=== PATIENT | male | born 1945 | race Hispanic/Latino ===

== ENCOUNTER 2018-08-09 18:26 | Inpatient (IN) | payer OTHER ==
--- NOTE | 2018-08-09 19:51 | ED PDOC ---
Lower Extremity Pain/Injury Time Seen by Provider: 08/09/18 19:11 Chief Complaint (Nursing): Lower Extremity Problem/Injury Chief Complaint (Provider): LLE Problem History Per: Patient History/Exam Limitations: no limitations Onset/Duration Of Symptoms: Days (x3) Current Symptoms Are (Timing): Still Present Additional Complaint(s): 72 year old male presents to the ED for evaluation of redness, swelling, pain, and warmth to his LLE for the past three days. He states the redness has spread up to this thigh from his calf. Denies chest pain, shortness of breath, fever, and chills. Of note, patient reports traveling from [place] sixteen days ago via plane. PMD: out of the area Past Medical History Reviewed: Historical Data, Nursing Documentation, Vital Signs Vital Signs: Last Vital Signs Temp 98.2 F 08/09/18 18:46 Pulse 117 H 08/09/18 18:46 Resp 18 08/09/18 18:46 BP 161/83 H 08/09/18 18:46 Pulse Ox 98 08/09/18 18:46 - Medical History PMH: No Chronic Diseases - Surgical History Surgical History: No Surg Hx - Family History Family History: States: Unknown Family Hx - Social History Current smoker - smoking cessation education provided: No Alcohol: None Drugs: Denies - Allergies Allergies/Adverse Reactions: Allergies Allergy/AdvReac Type Severity Reaction Status Date / Time No Known Allergies Allergy Verified 08/09/18 18:46 Wells Criteria for PE - Wells Criteria for Pulmonary Embolism Clinical Signs and Symptoms of DVT: No P.E is #1 Diagnosis, or Equally Likely: No Heart Rate >100: Yes Immobilization at least 3 days;Surgery previous 4 weeks: No Previous, objectively diagnosed PE or DVT: No Hemoptysis: No Malignancy w/treatment within 6 months, or palliative: No Total Score: 1.5 Review of Systems ROS Statement: Except As Marked, All Systems Reviewed And Found Negative Constitutional: Negative for: Fever, Chills Cardiovascular: Negative for: Chest Pain Respiratory: Negative for: Shortness of Breath Musculoskeletal: Positive for: Other (redness, swelling, pain, and warmth to LLE) Physical Exam - Reviewed Nursing Documentation Reviewed: Yes Vital Signs Reviewed: Yes - Physical Exam Appears: Positive for: No Acute Distress Head Exam: Positive for: ATRAUMATIC, NORMOCEPHALIC Skin: Positive for: Normal Color Eye Exam: Positive for: Normal appearance Neck: Positive for: Normal, Painless ROM, Supple Cardiovascular/Chest: Positive for: Tachycardia Respiratory: Positive for: Normal Breath Sounds. Negative for: Respiratory Distress Gastrointestinal/Abdominal: Positive for: Normal Exam, Soft. Negative for: Tenderness Extremity: Positive for: Other (LLE erythema, swelling, warmth, and tenderness from ankle extending to knee with medial aspect of left thigh also erythematous) Neurologic/Psych: Positive for: Alert, Oriented (x3) - Laboratory Results Result Diagrams: 08/09/18 20:26 08/09/18 20:26 - ECG O2 Sat by Pulse Oximetry: 98 (RA) Pulse Ox Interpretation: Normal Medical Decision Making Medical Decision Making: Time: 1916 Initial Impression: cellulitis v DVT Initial Plan: --VBG --EKG --CMP --U-dip --CBC with differential --Chest x-ray --Blood culture --Most likely cellulitis, not DVT, however will obtain venous duplex LLE to r/o DVT. --Will start IV vancomycin as patient is tachy and most likely will be septic. Scribe Attestation: Documented by Monserrat Lepe, acting as a scribe for Blaze Villatoro MD. Provider Scribe Attestation: All medical record entries made by the Scribe were at my direction and personally dictated by me. I have reviewed the chart and agree that the record accurately reflects my personal performance of the history, physical exam, medical decision making, and the department course for this patient. I have also personally directed, reviewed, and agree with the discharge instructions and disposition. Disposition - Clinical Impression Clinical Impression: Cellulitis, Sepsis - Patient ED Disposition Is Patient to be Admitted: Yes - Disposition Disposition Time: 20:53 Condition: FAIR Forms: [employer] (Slovenian) - Pt Status Changed To: Hospital Disposition Of: Inpatient - Admit Certification Admit to Inpatient:: After my assessment, the patient will require hospitalization for at least two midnights. This is because of the severity of symptoms shown, intensity of services needed, and/or the medical risk in this patient being treated as an outpatient. - POA Present On Arrival: None
[2018-08-09] MEDS ORDERED: Vancomycin 1 g Inj ONE (20:12)
[2018-08-09 20:32] LABS: BASO % 0.1 % (0.0-2.0); HEMOGLOBIN 12.9 g/dL (12.0-18.0); LYMPH # 0.7 K/uL (1.0-4.3); LYMPH % 4.9 % (20.0-40.0); MEAN CELL VOLUME 95.4 fl (80.0-94.0); MEAN CORPUSCULAR HEMOGLOBIN 32.3 pg (27.0-31.0); MEAN CORPUSCULAR HGB CONC 33.8 g/dL (33.0-37.0); MEAN PLATELET VOLUME 8.8 fl (7.2-11.7); MONO # 0.4 K/uL (0.0-0.8); MONO % 2.8 % (0.0-10.0); NEUT # 13.4 K/uL (1.8-7.0); NEUT % 92.2 % (50.0-75.0); PLATELET COUNT 186 K/uL (130-400); RBC 4.01 Mil/uL (4.40-5.90); RED CELL DISTRIBUTION WIDTH 14.5 % (11.5-14.5); WHITE BLOOD COUNT 14.5 K/uL (4.8-10.8)
[2018-08-09 20:42] LABS: ALB/GLOB RATIO 1.1 (1.0-2.1); ALBUMIN 3.8 g/dL (3.5-5.0); ALT/SGPT 54 U/L (21-72); AST/SGOT 55 U/L (17-59); BLOOD UREA NITROGEN 18 mg/dl (9-20); CALCIUM 8.7 mg/dL (8.4-10.2); GFR NON-AFRICAN AMERICAN > 60
[2018-08-09] MEDS ORDERED: Potassium Chloride 20 mEq ER Tab PO ONE ×2 (20:50→22:37)
[2018-08-09] MEDS ORDERED: Piperacillin/Tazobact 3.375 GM in Sodium Chloride 0.9% 100 ML IVPB STA (20:51)
[2018-08-09] MEDS ORDERED: Sodium Chloride 0.9% 1,000 ML IV STA (20:52)
[2018-08-09] MEDS ORDERED: Oxycodone/Acetaminophen 5/325 mg Tab PO PRN (20:57)
--- NOTE | 2018-08-09 21:07 | CP.PCM.HP ---
<Lisa Fabian - Last Filed: 08/09/18 21:57> History of Present Illness - History of Present Illness History of Present Illness: 72 year old male w/o relevant PMH presents to the ED c/o redness, swelling, pain, and warmth to his LLE for the past three days. He states the redness has spread up to this thigh from his calf. Associated fever and chills, last temperature checked this afternoon 102. F. He is here from [place], he is here for vacations. No other complaints. He denies nausea, vomiting, chest pain, shortness of breath, no urinary sx. Of note, patient reports traveling from [place] sixteen days ago via plane. PMD: from [place], here for vacations PMH: denies PSH: Squamous cell ca (forehead), appendectomy FMH: denies Meds: none NKDA SH: denies tobacco, ilicit drugs, positive etoh 2 drinks nightly. Present on Admission - Present on Admission Any Indicators Present on Admission: No Review of Systems - Review of Systems All systems: reviewed and no additional remarkable complaints except (HPI) Past Patient History - Past Social History Alcohol: None Drugs: Denies - HEMATOLOGICAL/ONCOLOGICAL Hx Cancer: Yes - PSYCHIATRIC Hx Substance Use: No - SURGICAL HISTORY Hx Appendectomy: Yes Other/Comment: tumor from forehead removed - ANESTHESIA Hx Anesthesia: Yes Meds Allergies/Adverse Reactions: Allergies Allergy/AdvReac Type Severity Reaction Status Date / Time No Known Allergies Allergy Verified 08/09/18 18:46 Physical Exam - Constitutional Appears: No Acute Distress - Head Exam Head Exam: NORMAL INSPECTION - Eye Exam Eye Exam: EOMI, PERRL - Respiratory Exam Respiratory Exam: Clear to Auscultation Bilateral, NORMAL BREATHING PATTERN - Cardiovascular Exam Cardiovascular Exam: REGULAR RHYTHM, +S1, +S2. absent: Tachycardia - GI/Abdominal Exam GI & Abdominal Exam: Normal Bowel Sounds, Soft. absent: Distended, Tenderness - Extremities Exam Additional comments: LLE erythema, swelling, warmth, and tenderness from ankle extending to knee with medial aspect of left thigh also erythematous, DP/PT 2+ b/l - Neurological Exam Neurological exam: Alert, CN II-XII Intact, Oriented x3 - Skin Skin Exam: Dry Results - Vital Signs Recent Vital Signs: Last Vital Signs Temp 98.2 F 08/09/18 18:46 Pulse 117 H 08/09/18 18:46 Resp 18 08/09/18 18:46 BP 161/83 H 08/09/18 18:46 Pulse Ox 98 08/09/18 20:53 - Labs Result Diagrams: 08/09/18 20:26 08/09/18 20:26 Labs: Laboratory Results - last 24 hr 08/09/18 08/09/18 20:26 20:26 WBC 14.5 H RBC 4.01 L Hgb 12.9 Hct 38.3 MCV 95.4 H MCH 32.3 H MCHC 33.8 RDW 14.5 Plt Count 186 MPV 8.8 Neut % (Auto) 92.2 H Lymph % (Auto) 4.9 L [place] % (Auto) 2.8 Eos % (Auto) 0.0 Baso % (Auto) 0.1 Neut # (Auto) 13.4 H Lymph # (Auto) 0.7 L [place] # (Auto) 0.4 Eos # (Auto) 0.0 Baso # (Auto) 0.0 Sodium 130 L Potassium 3.3 L Chloride 94 L Carbon Dioxide 23 Anion Gap 16 BUN 18 Creatinine 0.9 Est GFR ( Amer) > 60 Est GFR (Non-Af Amer) > 60 Random Glucose 115 H Calcium 8.7 Total Bilirubin 1.6 H AST 55 ALT 54 Alkaline Phosphatase 146 H Total Protein 7.4 Albumin 3.8 Globulin 3.6 Albumin/Globulin Ratio 1.1 Assessment & Plan - Assessment and Plan (Free Text) Assessment: 72 yo male patient admitted with LLE cellulitis/sepsis. Plan: LLE cellulitis/ r/o sepsis - fever, tachy, elevated WBC - EKG sinus tachy - LE doppler: pending official report - vanco in ED - IV fluids - start vanco and zocyn IV - pain management - labs in am - f/u blood and urine CX Hypokalemia/Hyponatremia - K 3.3, Na 130 - repleted - IV fluids - f/u cmp in am DVT prophylaxis: - lovenox SC daily Case discussed with Dr Hernandez. <Bonnie Hernandez - Last Filed: 08/11/18 10:15> Results - Vital Signs Recent Vital Signs: Last Vital Signs Temp 98.0 F 08/11/18 08:00 Pulse 78 12/26/18 08:00 Resp 20 08/11/18 08:00 BP 96/56 L 08/11/18 08:00 Pulse Ox 97 08/11/18 08:00 - Labs Result Diagrams: 08/11/18 07:46 08/11/18 07:46 Labs: Laboratory Results - last 24 hr 08/11/18 08/11/18 08/11/18 07:46 07:46 07:46 WBC 15.4 H RBC 3.26 L Hgb 10.6 L Hct 31.7 L MCV 97.3 H D MCH 32.5 H MCHC 33.4 RDW 14.2 Plt Count 197 MPV 8.7 Neut % (Auto) 88.4 H Lymph % (Auto) 7.2 L [place] % (Auto) 4.2 Eos % (Auto) 0.1 Baso % (Auto) 0.1 Neut # (Auto) 13.6 H Lymph # (Auto) 1.1 [place] # (Auto) 0.6 Eos # (Auto) 0.0 Baso # (Auto) 0.0 Sodium 130 L Potassium 3.2 L Chloride 100 Carbon Dioxide 21 L Anion Gap 12 BUN 18 Creatinine 1.0 Est GFR ( Amer) > 60 Est GFR (Non-Af Amer) > 60 Random Glucose 97 Calcium 7.5 L Phosphorus Magnesium Vancomycin Trough 7.1 08/11/18 08:54 WBC RBC Hgb Hct MCV MCH MCHC RDW Plt Count MPV Neut % (Auto) Lymph % (Auto) [place] % (Auto) Eos % (Auto) Baso % (Auto) Neut # (Auto) Lymph # (Auto) [place] # (Auto) Eos # (Auto) Baso # (Auto) Sodium Potassium Chloride Carbon Dioxide Anion Gap BUN Creatinine Est GFR ( Amer) Est GFR (Non-Af Amer) Random Glucose Calcium Phosphorus 2.9 Magnesium 2.1 Vancomycin Trough Attending/Attestation - Attestation I have personally seen and examined this patient.: Yes I have fully participated in the care of the patient.: Yes I have reviewed all pertinent clinical information: Yes Notes (Text): 08/11/18 10:14 agree with findings and plan as above. admit for cellulitis, IV abx, pain control.
[2018-08-09 21:27] LABS: LYMPHOCYTE 6 % (20-50); MONOCYTE 1 % (0-10); NEUTROPHIL 93 % (42-75); PLATELET ESTIMATE NORMAL (NORMAL); TOTAL CELLS COUNTED 100
[2018-08-09 21:28] LABS: OVALOCYTES SLIGHT; SPHEROCYTES SLIGHT
[2018-08-09 22:27] LABS: VENOUS BLOOD GAS PCO2 31 mmHg (40-60); VENOUS BLOOD GAS PO2 23 mm/Hg (30-55); VENOUS BLOOD PH 7.49 (7.32-7.43)
[2018-08-09] MEDS ORDERED: Piperacillin/Tazobact 3.375 gm Inj IVPB ONE (22:37)
[2018-08-09] MEDS: Piperacillin/Tazobact 3.375 GM in Sodium Chloride 0.9% 100 ML IVPB SCH (23:49)
[2018-08-10] MEDS: Piperacillin/Tazobact 3.375 GM in Sodium Chloride 0.9% 100 ML IVPB SCH ×4 (03:51→21:58)
[2018-08-10 05:26] LABS: BASO % 0.1 % (0.0-2.0); LYMPH % 6.7 % (20.0-40.0); MEAN CORPUSCULAR HEMOGLOBIN 32.3 pg (27.0-31.0); MEAN PLATELET VOLUME 9.4 fl (7.2-11.7); MONO # 0.4 K/uL (0.0-0.8); MONO % 3.1 % (0.0-10.0); NEUT # 13.1 K/uL (1.8-7.0); NEUT % 90.1 % (50.0-75.0); PLATELET COUNT 166 K/uL (130-400); WHITE BLOOD COUNT 14.5 K/uL (4.8-10.8)
[2018-08-10 06:08] LABS: ALB/GLOB RATIO 0.9 (1.0-2.1); ALBUMIN 2.9 g/dL (3.5-5.0); ALT/SGPT 71 U/L (21-72); AST/SGOT 77 U/L (17-59); BLOOD UREA NITROGEN 17 mg/dl (9-20); CALCIUM 7.8 mg/dL (8.4-10.2); GFR NON-AFRICAN AMERICAN > 60
[2018-08-10 08:53] LABS: ANISOCYTOSIS SLIGHT; BANDS 6 % (0-2); LYMPHOCYTE 5 % (20-50); MONOCYTE 1 % (0-10); NEUTROPHIL 88 % (42-75); PLATELET ESTIMATE NORMAL (NORMAL); POIKILOCYTOSIS SLIGHT; TOTAL CELLS COUNTED 100; TOXIC GRANULATION PRESENT
[2018-08-10] MEDS: Enoxaparin 40 mg Syringe SC SCH (09:16)
[2018-08-10] MEDS: Sodium Chloride 0.9% 1,000 ML IV SCH ×2 (09:27→19:25)
[2018-08-10] MEDS ORDERED: Sodium Chloride 0.9% 0 ML IV ONE (10:47)
[2018-08-10] MEDS ORDERED: Iodixanol 320 MG/ML 100 ML BOTTLE IV ONE (10:47)
--- NOTE | 2018-08-10 11:02 | CP.PCM.PN ---
Subjective - Date & Time of Evaluation Date of Evaluation: 08/10/18 Time of Evaluation: 09:15 - Subjective Subjective: 72 y/o M, traveler form [place], with No significant PMHx admitted for LLE cellulitis. 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 Patient seen and evaluated at bedside in AM. No acute events overnight. Afebrile, VSS, NAD. Patient with LLE erythema, swelling and pain mildly improved compare to yesterday. Denies fever, chills, chest pain, shortness of breath, abdominal pain, N/V/D. Tolerating diet well PO. Objective - Vital Signs/Intake and Output Vital Signs (last 24 hours): Temp Pulse Resp BP Pulse Ox 97.7 F 84 20 98/64 L 99 08/10/18 08:28 08/10/18 08:28 08/10/18 08:28 08/10/18 08:28 08/10/18 08:28 - Medications Medications: Current Medications Acetaminophen (Tylenol 325mg Tab) 650 mg PO Q6 PRN PRN Reason: Fever >100.4 F Last Admin: 08/09/18 23:25 Dose: 650 mg Acetaminophen (Tylenol 325mg Tab) 650 mg PO Q6 PRN PRN Reason: Other Enoxaparin Sodium (Lovenox) 40 mg SC DAILY YUMIKO; Protocol Last Admin: 08/10/18 09:16 Dose: 40 mg Vancomycin HCl 1 gm/ Sodium (Chloride) 250 mls @ 166.667 mls/hr IVPB Q12 YUMIKO; Protocol Last Admin: 08/10/18 09:26 Dose: 166.667 mls/hr Piperacillin Sod/Tazobactam (Sod 3.375 gm/ Sodium Chloride) 100 mls @ 100 mls/hr IVPB Q6 YUMIKO; Protocol Last Admin: 08/10/18 09:18 Dose: 100 mls/hr Sodium Chloride (Sodium Chloride 0.9%) 1,000 mls @ 100 mls/hr IV .Q10H YUMIKO Stop: 08/11/18 08:32 Last Admin: 08/10/18 09:27 Dose: 100 mls/hr Oxycodone/Acetaminophen (Percocet 5/325 Mg Tab) 1 tab PO Q4 PRN PRN Reason: Pain, severe (8-10) Stop: 08/12/18 20:58 - Labs Labs: 12/25/18 04:30 08/10/18 04:30 - Constitutional Appears: Non-toxic, No Acute Distress - Head Exam Head Exam: ATRAUMATIC, NORMOCEPHALIC - Eye Exam Eye Exam: EOMI, Normal appearance - ENT Exam ENT Exam: Mucous Membranes Moist - Neck Exam Neck Exam: Full ROM - Respiratory Exam Respiratory Exam: Clear to Ausculation Bilateral, NORMAL BREATHING PATTERN. ab sent: Rales, Rhonchi, Wheezes - Cardiovascular Exam Cardiovascular Exam: REGULAR RHYTHM, +S1, +S2. absent: Murmur - GI/Abdominal Exam GI & Abdominal Exam: Soft, Normal Bowel Sounds. absent: Distended, Tenderness - Extremities Exam Extremities Exam: Calf Tenderness, Pedal Edema, Tenderness Additional comments: LLE erythema, pitting LLE below knee on left, + Tenderness. - Neurological Exam Neurological Exam: Alert, Awake, Oriented x3 - Psychiatric Exam Psychiatric exam: Normal Affect, Normal Mood - Skin Skin Exam: Dry, Intact, Normal Color, Warm Assessment and Plan - Assessment and Plan (Free Text) Assessment: 72 yo male patient w/ no significant PMHx admitted with LLE cellulitis. Plan: LLE cellulitis, r/o sepsis/DVT - Afebrile, VSS - LE doppler: Negative for DVTs. - Started on Vancomycin 1g BID - Started on Zosyn 3.375 mg Q6 - Start NS @ 100 ml/hr - Tylenol and Percocet for pain management - F/U CBC, blood and vancomycin trough level. Leukocytosis - Likely secondary to cellulites - WBC 14.5 - Monitor CBC Hypokalemia/Hyponatremia - K 3.4, Na 129 - Continue NS @ 100 ml/hr - f/u CMP DVT prophylaxis: - lovenox SC daily Code status: Full code
[2018-08-10] MEDS ORDERED: Potassium Chloride 20 mEq ER Tab PO ONE (14:30)
--- NOTE | 2018-08-10 14:59 | RAD ---
Date of service: 08/09/2018 HISTORY: cough COMPARISON: No prior. FINDINGS: LUNGS: No active pulmonary disease, with azygous fissure identified at the medial right apex. PLEURA: No significant pleural effusion identified, no pneumothorax apparent. CARDIOVASCULAR: No aortic atherosclerotic calcification present. Normal cardiac size. No pulmonary vascular congestion. OSSEOUS STRUCTURES: No significant abnormalities. VISUALIZED UPPER ABDOMEN: Normal. OTHER FINDINGS: None. IMPRESSION: No acute cardiopulmonary disease appreciated.
--- NOTE | 2018-08-10 15:14 | US ---
Date of service: 08/09/2018 HISTORY: Redness and swelling. PRIORS: None. FINDINGS: 2-D, color and duplex Doppler analysis of the lower extremity venous circulation using routine protocol from the femoral veins through the popliteal veins. Venous compressibility: Normal. Flow and augmentation patterns: Normal. Visualized veins upper third of calf: Normal. [place] cyst: None. Incidentally noted small left inguinal lymph node, 6 mm short axis peer IMPRESSION: No sonographic or Doppler evidence for DVT in left lower extremity. The preliminary findings for this examination were reported by [facility] at 8:02 p.m. on 08/09/2018. There is concurrence of this report with the preliminary findings.
--- NOTE | 2018-08-10 20:08 | CARD ---
APPROVED REPORT Date of service: 08/09/2018 EKG Measurement Heart [id number] <Conclusion> Sinus tachycardia Possible Left atrial enlargement Incomplete RBBB Abnormal ECG
[2018-08-11] MEDS: Piperacillin/Tazobact 3.375 GM in Sodium Chloride 0.9% 100 ML IVPB SCH (04:04)
[2018-08-11] MEDS: Sodium Chloride 0.9% 1,000 ML IV SCH ×3 (04:06→21:00)
[2018-08-11 07:56] LABS: BASO % 0.1 % (0.0-2.0); EOS % 0.1 % (0.0-4.0); HEMOGLOBIN 10.6 g/dL (12.0-18.0); LYMPH # 1.1 K/uL (1.0-4.3); LYMPH % 7.2 % (20.0-40.0); MEAN CELL VOLUME 97.3 fl (80.0-94.0); MEAN CORPUSCULAR HEMOGLOBIN 32.5 pg (27.0-31.0); MEAN CORPUSCULAR HGB CONC 33.4 g/dL (33.0-37.0); MEAN PLATELET VOLUME 8.7 fl (7.2-11.7); MONO # 0.6 K/uL (0.0-0.8); MONO % 4.2 % (0.0-10.0); NEUT # 13.6 K/uL (1.8-7.0); NEUT % 88.4 % (50.0-75.0); RBC 3.26 Mil/uL (4.40-5.90); RED CELL DISTRIBUTION WIDTH 14.2 % (11.5-14.5); WHITE BLOOD COUNT 15.4 K/uL (4.8-10.8)
[2018-08-11 08:02] LABS: BLOOD UREA NITROGEN 18 mg/dl (9-20); CALCIUM 7.5 mg/dL (8.4-10.2); GFR NON-AFRICAN AMERICAN > 60
[2018-08-11] MEDS ORDERED: Potassium Chloride 20 mEq ER Tab PO ONE (08:17)
--- NOTE | 2018-08-11 09:55 | CP.PCM.CON ---
History of Present Illness - History of Present Illness History of Present Illness: Infectious Disease Consultation Note- HPI- Patient is a 72 year old male who is visiting his daughter from [place] and 2 days ago he woke up with redness and swelling and pain in his left leg. He denies any trauma or injury to the leg and denies ever having anything like this before. He states the redness has spread up to this thigh from his calf. Associated fever and chills. he denies any h/o diabetes or any pmh other than dry skin . he denies any ELLISON, denies any GI symptoms, denies any dysurea, denies any sob, denies any chest pain. He states since admission his skin has started to weep and he has some yellow fluid from the skin weeping. PMD: from [place], here for vacations PMH: denies PSH: Squamous cell ca (forehead), appendectomy FMH: denies Meds: none NKDA SH: denies tobacco, ilicit drugs, positive etoh 2 drinks nightly. Review of Systems - Review of Systems Review of Systems: ROS- left leg redness and swelling and pain and weeping for past 2 days, + fever, denies any trauma or injury to the region, denies any ELLISON , denies any cough or sob, denies any chest pain, denies any abd. pain, denies any dysurea, denies any diarrhea Past Patient History - Past Medical History & Family History Past Medical History?: No - Past Social History Smoking Status: Former Smoker Alcohol: < 2 Drinks/Day Drugs: Denies Home Situation {Lives}: With Family - CARDIAC Hx Cardiac Disorders: No - PULMONARY Hx Respiratory Disorders: No - NEUROLOGICAL Hx Neurological Disorder: No - HEENT Hx HEENT Problems: No - RENAL Hx Chronic Kidney Disease: No - ENDOCRINE/METABOLIC Hx Endocrine Disorders: No - HEMATOLOGICAL/ONCOLOGICAL Hx Blood Disorders: No - INTEGUMENTARY Hx Dermatological Problems: No - MUSCULOSKELETAL/RHEUMATOLOGICAL Hx Falls: No - GENITOURINARY/GYNECOLOGICAL Hx Genitourinary Disorders: No - PSYCHIATRIC Hx Substance Use: No - SURGICAL HISTORY Hx Surgeries: Yes Hx Appendectomy: Yes Other/Comment: tumor from forehead removed - ANESTHESIA Hx Anesthesia: Yes Hx Anesthesia Reactions: No Meds Allergies/Adverse Reactions: Allergies Allergy/AdvReac Type Severity Reaction Status Date / Time No Known Allergies Allergy Verified 08/09/18 18:46 - Medications Medications: Current Medications Enoxaparin Sodium (Lovenox) 40 mg SC DAILY YUMIKO; Protocol Last Admin: 08/10/18 09:16 Dose: 40 mg Vancomycin HCl 1 gm/ Sodium (Chloride) 250 mls @ 166.667 mls/hr IVPB Q12 [facility]; Protocol Last Admin: 08/10/18 20:17 Dose: 166.667 mls/hr Piperacillin Sod/Tazobactam (Sod 3.375 gm/ Sodium Chloride) 100 mls @ 100 mls/hr IVPB Q6 [facility]KO; Protocol Last Admin: 08/11/18 04:04 Dose: 100 mls/hr Ibuprofen (Motrin Tab) 600 mg PO Q6 PRN PRN Reason: Fever >100.4 F Ibuprofen (Motrin Tab) 600 mg PO Q6 PRN PRN Reason: Pain, Mild (1-3) Oxycodone/Acetaminophen (Percocet 5/325 Mg Tab) 1 tab PO Q4 PRN PRN Reason: Pain, severe (8-10) Stop: 08/12/18 20:58 Physical Exam - Constitutional Appears: No Acute Distress - Head Exam Head Exam: ATRAUMATIC - Eye Exam Eye Exam: EOMI, PERRL - ENT Exam ENT Exam: Normal Oropharynx - Neck Exam Neck exam: Positive for: Full Rom - Respiratory Exam Respiratory Exam: Clear to Auscultation Bilateral, NORMAL BREATHING PATTERN - Cardiovascular Exam Cardiovascular Exam: RRR, +S1, +S2 - GI/Abdominal Exam GI & Abdominal Exam: Normal Bowel Sounds, Soft Additional comments: NT, ND - Extremities Exam Additional comments: left leg from below knee all the way to foot with extensive edema, erythema, very taught skin, few opened blisters with weeping yellow fluid the erythema extends superiorly to medial inner thigh and inferior groin region no open wounds no ulcers - Neurological Exam Neurological exam: Alert, Oriented x3 Results - Vital Signs Recent Vital Signs: Last Vital Signs Temp 98.0 F 08/11/18 08:00 Pulse 78 08/11/18 08:00 Resp 20 08/11/18 08:00 BP 96/56 L 08/11/18 08:00 Pulse Ox 97 08/11/18 08:00 - Labs Result Diagrams: 08/11/18 07:46 08/11/18 07:46 Labs: Laboratory Results - last 24 hr 08/11/18 08/11/18 08/11/18 07:46 07:46 07:46 WBC 15.4 H RBC 3.26 L Hgb 10.6 L Hct 31.7 L MCV 97.3 H D MCH 32.5 H MCHC 33.4 RDW 14.2 Plt Count 197 MPV 8.7 Neut % (Auto) 88.4 H Lymph % (Auto) 7.2 L [place] % (Auto) 4.2 Eos % (Auto) 0.1 Baso % (Auto) 0.1 Neut # (Auto) 13.6 H Lymph # (Auto) 1.1 [place] # (Auto) 0.6 Eos # (Auto) 0.0 Baso # (Auto) 0.0 Sodium 130 L Potassium 3.2 L Chloride 100 Carbon Dioxide 21 L Anion Gap 12 BUN 18 Creatinine 1.0 Est GFR ( Amer) > 60 Est GFR (Non-Af Amer) > 60 Random Glucose 97 Calcium 7.5 L Phosphorus Magnesium Vancomycin Trough 7.1 08/11/18 08:54 WBC RBC Hgb Hct MCV MCH MCHC RDW Plt Count MPV Neut % (Auto) Lymph % (Auto) [place] % (Auto) Eos % (Auto) Baso % (Auto) Neut # (Auto) Lymph # (Auto) [place] # (Auto) Eos # (Auto) Baso # (Auto) Sodium Potassium Chloride Carbon Dioxide Anion Gap BUN Creatinine Est GFR ( Amer) Est GFR (Non-Af Amer) Random Glucose Calcium Phosphorus 2.9 Magnesium 2.1 Vancomycin Trough Laboratory Results - last 72 hr 08/09/18 08/09/18 08/09/18 20:26 20:26 22:18 WBC 14.5 H RBC 4.01 L Hgb 12.9 Hct 38.3 MCV 95.4 H MCH 32.3 H MCHC 33.8 RDW 14.5 Plt Count 186 MPV 8.8 Neut % (Auto) 92.2 H Lymph % (Auto) 4.9 L [place] % (Auto) 2.8 Eos % (Auto) 0.0 Baso % (Auto) 0.1 Neut # (Auto) 13.4 H Lymph # (Auto) 0.7 L [place] # (Auto) 0.4 Eos # (Auto) 0.0 Baso # (Auto) 0.0 Neutrophils % (Manual) 93 H Band Neutrophils % Lymphocytes % (Manual) 6 L Monocytes % (Manual) 1 Toxic Granulation Platelet Estimate Normal Poikilocytosis (manual Anisocytosis (manual) Spherocytes Slight Ovalocytes Slight pO2 23 L VBG pH 7.49 H VBG pCO2 31 L VBG HCO3 24.3 VBG Total CO2 24.6 VBG O2 Sat (Calc) 49.5 VBG Base Excess 1.0 VBG Potassium 3.1 L Glucose 106 Lactate 1.2 FiO2 21.0 Sodium 130 L 127.0 L Potassium 3.3 L Chloride 94 L 96.0 L Carbon Dioxide 23 Anion Gap 16 BUN 18 Creatinine 0.9 Est GFR ( Amer) > 60 Est GFR (Non-Af Amer) > 60 Random Glucose 115 H Calcium 8.7 Phosphorus Magnesium Total Bilirubin 1.6 H AST 55 ALT 54 Alkaline Phosphatase 146 H Total Protein 7.4 Albumin 3.8 Globulin 3.6 Albumin/Globulin Ratio 1.1 Venous Blood Potassium 3.1 L Vancomycin Trough 08/10/18 08/10/18 08/11/18 04:30 04:30 07:46 WBC 14.5 H 15.4 H RBC 3.40 L 3.26 L Hgb 11.0 L 10.6 L Hct 32.3 L 31.7 L MCV 95.0 H 97.3 H D MCH 32.3 H 32.5 H MCHC 34.0 33.4 RDW 14.0 14.2 Plt Count 166 197 MPV 9.4 8.7 Neut % (Auto) 90.1 H 88.4 H Lymph % (Auto) 6.7 L 7.2 L [place] % (Auto) 3.1 4.2 Eos % (Auto) 0.0 0.1 Baso % (Auto) 0.1 0.1 Neut # (Auto) 13.1 H 13.6 H Lymph # (Auto) 1.0 1.1 [place] # (Auto) 0.4 0.6 Eos # (Auto) 0.0 0.0 Baso # (Auto) 0.0 0.0 Neutrophils % (Manual) 88 H Band Neutrophils % 6 H Lymphocytes % (Manual) 5 L Monocytes % (Manual) 1 Toxic Granulation Present Platelet Estimate Normal Poikilocytosis (manual Slight Anisocytosis (manual) Slight Spherocytes Ovalocytes pO2 VBG pH VBG pCO2 VBG HCO3 VBG Total CO2 VBG O2 Sat (Calc) VBG Base Excess VBG Potassium Glucose Lactate FiO2 Sodium 129 L Potassium 3.4 L Chloride 97 L Carbon Dioxide 23 Anion Gap 12 BUN 17 Creatinine 1.1 Est GFR ( Amer) > 60 Est GFR (Non-Af Amer) > 60 Random Glucose 105 Calcium 7.8 L Phosphorus Magnesium Total Bilirubin 2.6 H AST 77 H D ALT 71 Alkaline Phosphatase 140 H Total Protein 5.9 L Albumin 2.9 L D Globulin 3.0 Albumin/Globulin Ratio 0.9 L Venous Blood Potassium Vancomycin Trough 08/11/18 08/11/18 08/11/18 07:46 07:46 08:54 WBC RBC Hgb Hct MCV MCH MCHC RDW Plt Count MPV Neut % (Auto) Lymph % (Auto) [place] % (Auto) Eos % (Auto) Baso % (Auto) Neut # (Auto) Lymph # (Auto) [place] # (Auto) Eos # (Auto) Baso # (Auto) Neutrophils % (Manual) Band Neutrophils % Lymphocytes % (Manual) Monocytes % (Manual) Toxic Granulation Platelet Estimate Poikilocytosis (manual Anisocytosis (manual) Spherocytes Ovalocytes pO2 VBG pH VBG pCO2 VBG HCO3 VBG Total CO2 VBG O2 Sat (Calc) VBG Base Excess VBG Potassium Glucose Lactate FiO2 Sodium 130 L Potassium 3.2 L Chloride 100 Carbon Dioxide 21 L Anion Gap 12 BUN 18 Creatinine 1.0 Est GFR ( Amer) > 60 Est GFR (Non-Af Amer) > 60 Random Glucose 97 Calcium 7.5 L Phosphorus 2.9 Magnesium 2.1 Total Bilirubin AST ALT Alkaline Phosphatase Total Protein Albumin Globulin Albumin/Globulin Ratio Venous Blood Potassium Vancomycin Trough 7.1 Microbiology 08/09/18 21:00 Blood-Venous Blood Culture - Preliminary NO GROWTH AFTER 24 HOURS 08/09/18 20:03 Blood-Venous Blood Culture - Preliminary NO GROWTH AFTER 24 HOURS Accession No. : [id number] Patient Name / ID : MABEL CASTILLO / [id number] Exam Date : 08/09/2018 19:44:18 ( Approved ) Study Comment : Sex / Age : M / 72Y Creator : Jones Trujillo MD Dictator : Jones Trujillo MD Security Compliance Specialist : Adolescent Medicine Specialist : Jones Trujillo MD Approver2 : Report Date : 08/10/2018 15:08:43 My Comment : Date of service: 08/09/2018 HISTORY: Redness and swelling. PRIORS: None. FINDINGS: 2-D, color and duplex Doppler analysis of the lower extremity venous circulation using routine protocol from the femoral veins through the popliteal veins. Venous compressibility: Normal. Flow and augmentation patterns: Normal. Visualized veins upper third of calf: Normal. [place] cyst: None. Incidentally noted small left inguinal lymph node, 6 mm short axis peer IMPRESSION: No sonographic or Doppler evidence for DVT in left lower extremity. The preliminary findings for this examination were reported by [facility] at 8:02 p.m. on 08/09/2018. There is concurrence of this report with the prelimin yoli findings. Assessment & Plan (1) Cellulitis Status: Acute (2) Sepsis Status: Acute - Assessment and Plan (Free Text) Assessment: A/P- 72 year old male admitted with extensive left leg cellulitis and edema. blood cx- negative x 2 afebrile today leukocytosis present US of LLE - negative for DVT as per report. plan- check 2 more blood cx. check CT /mri of the LLE r/o any muscle involvement , r/o any collection since pt's wbc rising on current abx . advise to continue with IV vancomycin and keep trough <15. advise to d/c zosyn and add ceftriaxone instead. advise to keep leg elevated while in bed to help reduce inflammation and edema. monitor temp and wbc. check cx of the fluid from the weeping skin as well. all labs and imaging and notes reviewed. all above d/w patient at length and he verbalizes full understanding of all above and agrees with above plan of care. Thank you for allowing me to take part in the care of this patient.
[2018-08-11] MEDS: Enoxaparin 40 mg Syringe SC SCH (10:04)
--- NOTE | 2018-08-11 11:19 | CP.PCM.PN ---
<Bryn Wang - Last Filed: 08/11/18 13:36> Subjective - Date & Time of Evaluation Date of Evaluation: 08/11/18 Time of Evaluation: 09:20 - Subjective Subjective: 72 y/o M, traveler form [place], with No significant PMHx admitted for LLE cellulitis. Denies any insect bites or trauma [employer]. Patient seen and evaluated at bedside in AM. Patient had temp 100.4 last night which improved with tylenol. Swelling of LLE same as yesterday however its less painful, less erythematous and oozing clear yellowish liquid. Erythema on medial aspect of thigh increasing w/o tightness or tenderness. Patient tolerating diet well PO. Urinating well. Denies any chills, CP, SOB, headache, abdominal pain, back pain, dysuria, N/V/D. Objective - Vital Signs/Intake and Output Vital Signs (last 24 hours): Temp Pulse Resp BP Pulse Ox 98.0 F 78 20 96/56 L 97 08/11/18 08:00 08/11/18 08:00 08/11/18 08:00 08/11/18 08:00 08/11/18 08:00 - Medications Medications: Current Medications Enoxaparin Sodium (Lovenox) 40 mg SC DAILY YUMIKO; Protocol Last Admin: 08/11/18 10:04 Dose: 40 mg Vancomycin HCl 1 gm/ Sodium (Chloride) 250 mls @ 166.667 mls/hr IVPB Q12 [facility]KO; Protocol Last Admin: 08/11/18 09:52 Dose: 166.667 mls/hr Piperacillin Sod/Tazobactam (Sod 3.375 gm/ Sodium Chloride) 100 mls @ 100 mls/hr IVPB Q6 YUMIKO; Protocol Last Admin: 08/11/18 04:04 Dose: 100 mls/hr Ibuprofen (Motrin Tab) 600 mg PO Q6 PRN PRN Reason: Fever >100.4 F Ibuprofen (Motrin Tab) 600 mg PO Q6 PRN PRN Reason: Pain, Mild (1-3) Oxycodone/Acetaminophen (Percocet 5/325 Mg Tab) 1 tab PO Q4 PRN PRN Reason: Pain, severe (8-10) Stop: 08/12/18 20:58 - Labs Labs: 08/11/18 07:46 08/11/18 07:46 - Constitutional Appears: Non-toxic, No Acute Distress - Head Exam Head Exam: ATRAUMATIC, NORMOCEPHALIC - Eye Exam Eye Exam: EOMI, PERRL - ENT Exam ENT Exam: Mucous Membranes Moist - Neck Exam Neck Exam: Full ROM - Respiratory Exam Respiratory Exam: Clear to Ausculation Bilateral, NORMAL BREATHING PATTERN. absent: Rales, Rhonchi, Wheezes, Respiratory Distress - Cardiovascular Exam Cardiovascular Exam: REGULAR RHYTHM, +S1, +S2. absent: Murmur - GI/Abdominal Exam GI & Abdominal Exam: Soft, Normal Bowel Sounds. absent: Tenderness - Extremities Exam Extremities Exam: Pedal Edema, Tenderness. absent: Joint Swelling Additional comments: Left leg: Erythema, mild tenderness, pitting edema +2, warmth. Left medial thigh: Erythema, Mild tenderness - Neurological Exam Neurological Exam: Alert, Awake, Oriented x3 - Psychiatric Exam Psychiatric exam: Normal Affect, Normal Mood - Skin Additional comments: LLE: clear yellowish discharge oozing Assessment and Plan - Assessment and Plan (Free Text) Assessment: 72 yo male patient w/ no significant PMHx admitted with LLE cellulitis. Plan: LLE cellulitis/Lymphangitis, r/o sepsis/DVT - Fever 100.4 last night, BP 95/56, WBC 15.4 - LE doppler: Negative for DVTs - D/C Tylenol and Percocet, Start Ibuprofen for fever and toradol for pain due elevated LFTs. - Continue Vancomycin 1g BID - D/C Zosyn 3.375 mg Q6 - Start Ceftriaxone 2gm daily - Elevated left lower ext - C/W NS @ 100 ml/hr -F/U CT abd/pelvis w/contrast and LLE CT results - F/U Blood Cx, Wound Cx - ID consulted: Recommended 2 more blood cx, CT /mri of the LLE. Leukocytosis - Likely secondary to cellulites - WBC increasing 14.5>15.4 - Monitor CBC Hypokalemia/Hyponatremia - K 3.2, Na 130 - Continue NS @ 100 ml/hr - K-Dur 40 meq PO once - f/u CMP, Mg , Phos DVT prophylaxis: - lovenox SC daily Code status: Full code <Bonnie Hernandez - Last Filed: 08/11/18 13:43> Objective - Vital Signs/Intake and Output Vital Signs (last 24 hours): Temp Pulse Resp BP Pulse Ox 98.0 F 78 20 96/56 L 97 08/11/18 08:00 08/11/18 08:00 08/11/18 08:00 08/11/18 08:00 08/11/18 08:00 - Medications Medications: Current Medications Enoxaparin Sodium (Lovenox) 40 mg SC DAILY YUMIKO; Protocol Last Admin: 08/11/18 10:04 Dose: 40 mg Vancomycin HCl 1 gm/ Sodium (Chloride) 250 mls @ 166.667 mls/hr IVPB Q12 YUMIKO; Protocol Last Admin: 08/11/18 09:52 Dose: 166.667 mls/hr Sodium Chloride (Sodium Chloride 0.9%) 1,000 mls @ 100 mls/hr IV .Q10H YUMIKO Ceftriaxone Sodium 2 gm/ (Sodium Chloride) 100 mls @ 100 mls/hr IVPB DAILY YUMIKO; Protocol Ibuprofen (Motrin Tab) 600 mg PO Q6 PRN PRN Reason: Fever >100.4 F Ibuprofen (Motrin Tab) 600 mg PO Q6 PRN PRN Reason: Pain, Mild (1-3) Ketorolac Tromethamine (Toradol) 30 mg IVP Q6 PRN PRN Reason: Pain, moderate (4-7) - Labs Labs: 08/11/18 07:46 08/11/18 07:46 Attending/Attestation - Attestation I have personally seen and examined this patient.: Yes I have fully participated in the care of the patient.: Yes I have reviewed all pertinent clinical information, including history, physical exam and plan: Yes Notes (Text): 08/11/18 13:41 Seen, examined, and discussed with resident. Agree with findings and plan as above. Patient WBC trending up, increased medial erythema and pain L lower extremity. Worsening oozing and weeping of honey colored non purulent drainage around cellulitic area. ID consult for abx optimization, consider lymphangitis, cellulitic spread, deep pelvic thrombus considering long travel time recently with worsening symptoms. Fevers spiking as well.
[2018-08-11] MEDS ORDERED: Iodixanol 320 MG/ML 100 ML BOTTLE IV ONE (12:02)
[2018-08-11] MEDS ORDERED: Sodium Chloride 0.9% 100 ML ONE (12:03)
[2018-08-11] MEDS: cefTRIAXone 2 GM in Sodium Chloride 0.9% 100 ML IVPB SCH (14:37)
[2018-08-12 06:03] LABS: BASO % 0.2 % (0.0-2.0); EOS % 0.2 % (0.0-4.0); HEMOGLOBIN 10.2 g/dL (12.0-18.0); LYMPH # 1.4 K/uL (1.0-4.3); LYMPH % 8.3 % (20.0-40.0); MEAN CELL VOLUME 97.7 fl (80.0-94.0); MEAN CORPUSCULAR HEMOGLOBIN 32.4 pg (27.0-31.0); MEAN CORPUSCULAR HGB CONC 33.1 g/dL (33.0-37.0); MEAN PLATELET VOLUME 8.4 fl (7.2-11.7); MONO # 0.8 K/uL (0.0-0.8); MONO % 4.7 % (0.0-10.0); NEUT # 14.2 K/uL (1.8-7.0); NEUT % 86.6 % (50.0-75.0); RBC 3.14 Mil/uL (4.40-5.90); RED CELL DISTRIBUTION WIDTH 14.3 % (11.5-14.5); WHITE BLOOD COUNT 16.4 K/uL (4.8-10.8)
[2018-08-12 06:27] LABS: ALB/GLOB RATIO 0.8 (1.0-2.1); ALBUMIN 2.4 g/dL (3.5-5.0); ALT/SGPT 46 U/L (21-72); AST/SGOT 22 U/L (17-59); BLOOD UREA NITROGEN 19 mg/dl (9-20); CALCIUM 7.5 mg/dL (8.4-10.2); GFR NON-AFRICAN AMERICAN > 60
[2018-08-12] MEDS ORDERED: Potassium Chloride 20 mEq ER Tab PO ONE (06:57)
--- NOTE | 2018-08-12 08:39 | CP.PCM.PN ---
<Cheryl Leslie - Last Filed: 08/12/18 10:58> Subjective - Date & Time of Evaluation Date of Evaluation: 08/12/18 Time of Evaluation: 08:39 - Subjective Subjective: 72 y/o M, traveler form [place], with No significant PMHx admitted for LLE cellulitis. Denies any insect bites or trauma [employer] SANDER. Patient seen and evaluated at bedside in AM. Patient had temp 102.9 last night which improved with tylenol. Swelling of LLE same as yesterday hErythema on medial aspect of thigh increasing w/o tightness or tenderness extending upto the groin. Patient tolerating diet well PO. Urinating well. Denies any chills, CP, SOB, headache, abdominal pain, back pain, dysuria, N/V/D. Objective - Vital Signs/Intake and Output Vital Signs (last 24 hours): Temp Pulse Resp BP Pulse Ox 98.6 F 79 20 109/57 L 95 08/12/18 08:28 08/12/18 08:28 08/12/18 08:28 08/12/18 08:28 08/12/18 08:28 - Medications Medications: Current Medications Enoxaparin Sodium (Lovenox) 40 mg SC DAILY YUMIKO; Protocol Last Admin: 08/11/18 10:04 Dose: 40 mg Vancomycin HCl 1 gm/ Sodium (Chloride) 250 mls @ 166.667 mls/hr IVPB Q12 YUMIKO; Protocol Last Admin: 08/11/18 20:58 Dose: 166.667 mls/hr Ceftriaxone Sodium 2 gm/ (Sodium Chloride) 100 mls @ 100 mls/hr IVPB DAILY YUMIKO; Protocol Last Admin: 08/11/18 14:37 Dose: 100 mls/hr Potassium Chloride/Sodium Chloride (Potassium Chl 20 Meq In Ns) 1,000 mls @ 100 mls/hr IV .Q10H YUMIKO Stop: 08/13/18 07:36 Ibuprofen (Motrin Tab) 600 mg PO Q6 PRN PRN Reason: Fever >100.4 F Last Admin: 08/11/18 17:10 Dose: 600 mg Ibuprofen (Motrin Tab) 600 mg PO Q6 PRN PRN Reason: Pain, Mild (1-3) Ketorolac Tromethamine (Toradol) 30 mg IVP Q6 PRN PRN Reason: Pain, moderate (4-7) - Labs Labs: 08/12/18 05:50 08/12/18 05:50 - Constitutional Appears: Well, Non-toxic, No Acute Distress - Head Exam Head Exam: ATRAUMATIC, NORMOCEPHALIC - Eye Exam Eye Exam: Normal appearance Pupil Exam: NORMAL ACCOMODATION - ENT Exam ENT Exam: Mucous Membranes Moist - Neck Exam Neck Exam: Normal Inspection - Respiratory Exam Respiratory Exam: Clear to Ausculation Bilateral, NORMAL BREATHING PATTERN - Cardiovascular Exam Cardiovascular Exam: REGULAR RHYTHM - GI/Abdominal Exam GI & Abdominal Exam: Normal Bowel Sounds. absent: Tenderness - Extremities Exam Additional comments: Left leg: Erythema, mild tenderness, pitting edema +2, warmth. Left medial thigh: Erythema, Mild tenderness LLE: clear yellowish discharge oozing Assessment and Plan - Assessment and Plan (Free Text) Assessment: 72 yo male patient w/ no significant PMHx admitted with LLE cellulitis. Plan: LLE cellulitis/Lymphangitis, r/o sepsis/DVT - Fever 100.4 last night, BP 95/56, WBC 15.4 - LE doppler: Negative for DVTs - D/C Tylenol and Percocet, Start Ibuprofen for fever and toradol for pain due elevated LFTs. - Continue Vancomycin 1g BID - Continue Ceftriaxone 2gm daily - Elevated left lower ext - C/W NS @ 100 ml/hr -F/U ct angio - F/U Blood Cx, Wound Cx - ID consulted: Recommended 2 more blood cx, CT /mri of the LLE. Leukocytosis - Likely secondary to cellulites - WBC increasing 14.5>15.4>16.4 - Monitor CBC Hypokalemia/Hyponatremia - K 3.3, Na 130 - Continue NS @ 100 ml/hr - K-Dur 40 meq PO once - f/u CMP, Mg(2.1) , Phos(2.9) DVT prophylaxis: - lovenox SC daily Code status: Full code <Bonnie Hernandez - Last Filed: 08/14/18 00:34> Objective - Vital Signs/Intake and Output Vital Signs (last 24 hours): Temp Pulse Resp BP Pulse Ox 99.4 F 81 18 116/67 96 08/13/18 16:16 08/13/18 16:16 08/13/18 16:16 08/13/18 16:16 08/13/18 16:16 Intake and Output: 08/13/18 08/14/18 18:59 06:59 Intake Total 1260 Balance 1260 - Medications Medications: Current Medications Enoxaparin Sodium (Lovenox) 40 mg SC DAILY YUMIKO; Protocol Last Admin: 08/13/18 08:17 Dose: 40 mg Ceftriaxone Sodium 2 gm/ (Sodium Chloride) 100 mls @ 100 mls/hr IVPB DAILY YUMIKO; Protocol Last Admin: 08/13/18 08:17 Dose: 100 mls/hr Vancomycin HCl 1,250 mg/ (Sodium Chloride) 250 mls @ 125 mls/hr IVPB Q12H YUMIKO; Protocol Last Admin: 08/13/18 17:21 Dose: 125 mls/hr Ibuprofen (Motrin Tab) 600 mg PO Q6 PRN PRN Reason: Fever >100.4 F Last Admin: 08/12/18 23:50 Dose: 600 mg Ibuprofen (Motrin Tab) 600 mg PO Q6 PRN PRN Reason: Pain, Mild (1-3) Ketorolac Tromethamine (Toradol) 30 mg IVP Q6 PRN PRN Reason: Pain, moderate (4-7) - Labs Labs: 08/13/18 05:43 08/13/18 05:43 Attending/Attestation - Attestation I have personally seen and examined this patient.: Yes I have fully participated in the care of the patient.: Yes I have reviewed all pertinent clinical information, including history, physical exam and plan: Yes Notes (Text): 08/14/18 00:34 agree with findings and plan as above
[2018-08-12] MEDS: Enoxaparin 40 mg Syringe SC SCH (08:48)
[2018-08-12] MEDS: cefTRIAXone 2 GM in Sodium Chloride 0.9% 100 ML IVPB SCH (08:48)
[2018-08-12] MEDS: Potassium Chl 20 mEq in NS 1,000 ML IV SCH ×2 (08:48→09:38)
--- NOTE | 2018-08-12 11:54 | CP.PCM.PN ---
Subjective - Date & Time of Evaluation Date of Evaluation: 08/12/18 Time of Evaluation: 11:54 - Subjective Subjective: ID Note- Stevan seen and examined today . stevan states he feels slightly betetr but he is still spiking temps but his leg edema nd skin tightness is slightly better. Objective - Vital Signs/Intake and Output Vital Signs (last 24 hours): Temp Pulse Resp BP Pulse Ox 98.6 F 79 20 109/57 L 95 08/12/18 08:28 08/12/18 08:28 08/12/18 08:28 08/12/18 08:28 08/12/18 08:28 - Medications Medications: Current Medications Enoxaparin Sodium (Lovenox) 40 mg SC DAILY YUMIKO; Protocol Last Admin: 08/12/18 08:48 Dose: 40 mg Vancomycin HCl 1 gm/ Sodium (Chloride) 250 mls @ 166.667 mls/hr IVPB Q12 YUMIKO; Protocol Last Admin: 08/12/18 08:49 Dose: 166.667 mls/hr Ceftriaxone Sodium 2 gm/ (Sodium Chloride) 100 mls @ 100 mls/hr IVPB DAILY YUMIKO; Protocol Last Admin: 08/12/18 08:48 Dose: 100 mls/hr Ibuprofen (Motrin Tab) 600 mg PO Q6 PRN PRN Reason: Fever >100.4 F Last Admin: 08/11/18 17:10 Dose: 600 mg Ibuprofen (Motrin Tab) 600 mg PO Q6 PRN PRN Reason: Pain, Mild (1-3) Ketorolac Tromethamine (Toradol) 30 mg IVP Q6 PRN PRN Reason: Pain, moderate (4-7) - Labs Labs: - Additional Findings Additional findings: - Constitutional Appears: No Acute Distress - Head Exam Head Exam: ATRAUMATIC - Eye Exam Eye Exam: EOMI, PERRL - ENT Exam ENT Exam: Normal Oropharynx - Neck Exam Neck exam: Positive for: Full Rom - Respiratory Exam Respiratory Exam: Clear to Auscultation Bilateral, NORMAL BREATHING PATTERN - Cardiovascular Exam Cardiovascular Exam: RRR, +S1, +S2 - GI/Abdominal Exam GI & Abdominal Exam: Normal Bowel Sounds, Soft Additional comments: NT, ND - Extremities Exam Additional comments: left leg from below knee all the way to foot with extensive edema but edema slightly less today, erythema, but skin is softer , less tight skin, the erythema extends superiorly to medial inner thigh and inferior groin region no open wounds no ulcers - Neurological Exam Neurological exam: Alert, Oriented x 3 Laboratory Results - last 72 hr 08/09/18 08/09/18 08/09/18 20:26 20:26 22:18 WBC 14.5 H RBC 4.01 L Hgb 12.9 Hct 38.3 MCV 95.4 H MCH 32.3 H MCHC 33.8 RDW 14.5 Plt Count 186 MPV 8.8 Neut % (Auto) 92.2 H Lymph % (Auto) 4.9 L [place] % (Auto) 2.8 Eos % (Auto) 0.0 Baso % (Auto) 0.1 Neut # (Auto) 13.4 H Lymph # (Auto) 0.7 L [place] # (Auto) 0.4 Eos # (Auto) 0.0 Baso # (Auto) 0.0 Neutrophils % (Manual) 93 H Band Neutrophils % Lymphocytes % (Manual) 6 L Monocytes % (Manual) 1 Toxic Granulation Platelet Estimate Normal Poikilocytosis (manual Anisocytosis (manual) Spherocytes Slight Ovalocytes Slight ESR pO2 23 L VBG pH 7.49 H VBG pCO2 31 L VBG HCO3 24.3 VBG Total CO2 24.6 VBG O2 Sat (Calc) 49.5 VBG Base Excess 1.0 VBG Potassium 3.1 L Glucose 106 Lactate 1.2 FiO2 21.0 Sodium 130 L 127.0 L Potassium 3.3 L Chloride 94 L 96.0 L Carbon Dioxide 23 Anion Gap 16 BUN 18 Creatinine 0.9 Est GFR ( Amer) > 60 Est GFR (Non-Af Amer) > 60 Random Glucose 115 H Serum Osmolality Calcium 8.7 Phosphorus Magnesium Total Bilirubin 1.6 H AST 55 ALT 54 Alkaline Phosphatase 146 H Total Protein 7.4 Albumin 3.8 Globulin 3.6 Albumin/Globulin Ratio 1.1 Venous Blood Potassium 3.1 L Vancomycin Trough HIV-1 Ab Rapid Screen 08/10/18 08/10/18 08/11/18 04:30 04:30 07:46 WBC 14.5 H 15.4 H RBC 3.40 L 3.26 L Hgb 11.0 L 10.6 L Hct 32.3 L 31.7 L MCV 95.0 H 97.3 H D MCH 32.3 H 32.5 H MCHC 34.0 33.4 RDW 14.0 14.2 Plt Count 166 197 MPV 9.4 8.7 Neut % (Auto) 90.1 H 88.4 H Lymph % (Auto) 6.7 L 7.2 L [place] % (Auto) 3.1 4.2 Eos % (Auto) 0.0 0.1 Baso % (Auto) 0.1 0.1 Neut # (Auto) 13.1 H 13.6 H Lymph # (Auto) 1.0 1.1 [place] # (Auto) 0.4 0.6 Eos # (Auto) 0.0 0.0 Baso # (Auto) 0.0 0.0 Neutrophils % (Manual) 88 H Band Neutrophils % 6 H Lymphocytes % (Manual) 5 L Monocytes % (Manual) 1 Toxic Granulation Present Platelet Estimate Normal Poikilocytosis (manual Slight Anisocytosis (manual) Slight Spherocytes Ovalocytes ESR pO2 VBG pH VBG pCO2 VBG HCO3 VBG Total CO2 VBG O2 Sat (Calc) VBG Base Excess VBG Potassium Glucose Lactate FiO2 Sodium 129 L Potassium 3.4 L Chloride 97 L Carbon Dioxide 23 Anion Gap 12 BUN 17 Creatinine 1.1 Est GFR ( Amer) > 60 Est GFR (Non-Af Amer) > 60 Random Glucose 105 Serum Osmolality Calcium 7.8 L Phosphorus Magnesium Total Bilirubin 2.6 H AST 77 H D ALT 71 Alkaline Phosphatase 140 H Total Protein 5.9 L Albumin 2.9 L D Globulin 3.0 Albumin/Globulin Ratio 0.9 L Venous Blood Potassium Vancomycin Trough HIV-1 Ab Rapid Screen 08/11/18 08/11/18 08/11/18 07:46 07:46 08:54 WBC RBC Hgb Hct MCV MCH MCHC RDW Plt Count MPV Neut % (Auto) Lymph % (Auto) [place] % (Auto) Eos % (Auto) Baso % (Auto) Neut # (Auto) Lymph # (Auto) [place] # (Auto) Eos # (Auto) Baso # (Auto) Neutrophils % (Manual) Band Neutrophils % Lymphocytes % (Manual) Monocytes % (Manual) Toxic Granulation Platelet Estimate Poikilocytosis (manual Anisocytosis (manual) Spherocytes Ovalocytes ESR pO2 VBG pH VBG pCO2 VBG HCO3 VBG Total CO2 VBG O2 Sat (Calc) VBG Base Excess VBG Potassium Glucose Lactate FiO2 Sodium 130 L Potassium 3.2 L Chloride 100 Carbon Dioxide 21 L Anion Gap 12 BUN 18 Creatinine 1.0 Est GFR ( Amer) > 60 Est GFR (Non-Af Amer) > 60 Random Glucose 97 Serum Osmolality Calcium 7.5 L Phosphorus 2.9 Magnesium 2.1 Total Bilirubin AST ALT Alkaline Phosphatase Total Protein Albumin Globulin Albumin/Globulin Ratio Venous Blood Potassium Vancomycin Trough 7.1 HIV-1 Ab Rapid Screen 08/11/18 08/11/18 08/12/18 12:18 13:45 05:50 WBC 16.4 H RBC 3.14 L Hgb 10.2 L Hct 30.7 L MCV 97.7 H MCH 32.4 H MCHC 33.1 RDW 14.3 Plt Count 217 MPV 8.4 Neut % (Auto) 86.6 H Lymph % (Auto) 8.3 L [place] % (Auto) 4.7 Eos % (Auto) 0.2 Baso % (Auto) 0.2 Neut # (Auto) 14.2 H Lymph # (Auto) 1.4 [place] # (Auto) 0.8 Eos # (Auto) 0.0 Baso # (Auto) 0.0 Neutrophils % (Manual) Band Neutrophils % Lymphocytes % (Manual) Monocytes % (Manual) Toxic Granulation Platelet Estimate Poikilocytosis (manual Anisocytosis (manual) Spherocytes Ovalocytes ESR 98 H pO2 VBG pH VBG pCO2 VBG HCO3 VBG Total CO2 VBG O2 Sat (Calc) VBG Base Excess VBG Potassium Glucose Lactate FiO2 Sodium Potassium Chloride Carbon Dioxide Anion Gap BUN Creatinine Est GFR ( Amer) Est GFR (Non-Af Amer) Random Glucose Serum Osmolality Calcium Phosphorus Magnesium Total Bilirubin AST ALT Alkaline Phosphatase Total Protein Albumin Globulin Albumin/Globulin Ratio Venous Blood Potassium Vancomycin Trough HIV-1 Ab Rapid Screen Non reactive 08/12/18 08/12/18 05:50 08:06 WBC RBC Hgb Hct MCV MCH MCHC RDW Plt Count MPV Neut % (Auto) Lymph % (Auto) [place] % (Auto) Eos % (Auto) Baso % (Auto) Neut # (Auto) Lymph # (Auto) [place] # (Auto) Eos # (Auto) Baso # (Auto) Neutrophils % (Manual) Band Neutrophils % Lymphocytes % (Manual) Monocytes % (Manual) Toxic Granulation Platelet Estimate Poikilocytosis (manual Anisocytosis (manual) Spherocytes Ovalocytes ESR pO2 VBG pH VBG pCO2 VBG HCO3 VBG Total CO2 VBG O2 Sat (Calc) VBG Base Excess VBG Potassium Glucose Lactate FiO2 Sodium 130 L Potassium 3.3 L Chloride 101 Carbon Dioxide 22 Anion Gap 10 BUN 19 Creatinine 1.0 Est GFR ( Amer) > 60 Est GFR (Non-Af Amer) > 60 Random Glucose 113 H Serum Osmolality 272 Calcium 7.5 L Phosphorus Magnesium Total Bilirubin 1.2 AST 22 ALT 46 Alkaline Phosphatase 124 Total Protein 5.3 L Albumin 2.4 L Globulin 2.9 Albumin/Globulin Ratio 0.8 L Venous Blood Potassium Vancomycin Trough HIV-1 Ab Rapid Screen Microbiology 08/11/18 10:12 Skin - Cellulitis Gram Stain - Final 08/11/18 10:12 Skin - Cellulitis Wound Culture - Preliminary NO GROWTH AFTER 24 HOURS 08/09/18 21:00 Blood-Venous Blood Culture - Preliminary NO GROWTH AFTER 48 HOURS 08/09/18 20:03 Blood-Venous Blood Culture - Preliminary NO GROWTH AFTER 48 HOURS Assessment and Plan (1) Cellulitis Status: Acute (2) Sepsis Status: Acute - Assessment and Plan (Free Text) Assessment: A/P- 72 year old male admitted with extensive left leg cellulitis and edema. blood cx- negative x 2 t-maax- 102 last night leukocytosis persists US of LLE - negative for DVT as per report. plan- check 2 more blood cx. await result of LLe Ct. advise to continue with IV vancomycin and keep trough <15. advise to continue with ceftriaxone as well. day #2. advise to keep leg elevated while in bed to help reduce inflammation and edema. monitor temp and wbc. all above d/w patient at length and he verbalizes full understanding of all above and agrees with above plan of care.
--- NOTE | 2018-08-12 12:13 | CP.PCM.PCO ---
<Brock Randolph - Last Filed: 08/12/18 12:10> Addendum Addendum: 08/12/18 12:11 Persistent hypokalemia, hyponatremia despite treatment. Ordered Urine lytes, U.Osm and S.Osm. S.Osm borderline low. SIADH is suspected. Will start fluid restriction to 1200 ml/day. F/U rest of workup <Bonnie Hernandez - Last Filed: 08/14/18 00:33> Attending/Attestation - Attestation I have personally seen and examined this patient.: Yes I have fully participated in the care of the patient.: Yes I have reviewed all pertinent clinical information: Yes Notes (Text): 08/14/18 00:33 agree with findings and plan as above
--- NOTE | 2018-08-12 14:47 | CT ---
Date of service: 08/11/2018 PROCEDURE: CT Angiography Abdomen, Pelvis and Lower Extremity with Contrast HISTORY: R/O abd/pelvic thrombus. L/LE swelling COMPARISON: None available. TECHNIQUE: Technique: CT angiography of the abdomen, pelvis and bilateral lower extremities performed in the arterial phase of enhancement. Coronal and sagittal reformats, and well as rotating MIP images of the vessels generated at the workstation. Intravenous contrast dose: 150 milliliters Visipaque 320 Radiation dose: Total exam DLP = 1277.72 mGy-cm. This CT exam was performed using one or more of the following dose reduction techniques: Automated exposure control, adjustment of the mA and/or kV according to patient size, and/or use of iterative reconstruction technique. FINDINGS: CT ANGIOGRAPHY: ABDOMINAL AORTA:: Mild calcific plaque but otherwise unremarkable. MAJOR AORTIC BRANCHES: Celiac [place]: Unremarkable. Superior mesenteric artery: Unremarkable. Inferior mesenteric artery: Unremarkable. Renal arteries: Unremarkable. PELVIC ARTERIES: Right Common Iliac: Unremarkable. Right External Iliac: Unremarkable. Right Internal Iliac: Unremarkable. Left Common Iliac: Unremarkable. Left External Iliac: Unremarkable. Left Internal Iliac: Unremarkable. RIGHT LOWER EXTREMITY ARTERIES: Right Common Femoral: Unremarkable. Right Superficial Femoral: Unremarkable. Right Profunda Femoris: Unremarkable. Right Popliteal:Unremarkable. Right Anterior Tibial: Unremarkable. Right Tibioperoneal Trunk: Unremarkable. Right Posterior Tibial: Unremarkable. Right Peroneal: Unremarkable. Right dorsalis pedis : Unremarkable. LEFT LOWER EXTREMITY ARTERIES: Left Common Femoral: Unremarkable. Left Superficial Femoral: Unremarkable. Left Profunda Femoris: Unremarkable. Left Popliteal: Unremarkable. Left Anterior Tibial: Unremarkable. Left Tibioperoneal Trunk: Unremarkable. Left Posterior Tibial: Unremarkable. Left Peronea: Unremarkable. Left Dorsalis pedis: Unremarkable. NON-ANGIOGRAPHIC ASPECT OF THE EXAM: LOWER THORAX: Dependent atelectatic changes. LIVER: Unremarkable. No gross lesion or ductal dilatation. GALLBLADDER AND BILE DUCTS: Unremarkable. PANCREAS: Unremarkable. No gross lesion or ductal dilatation. SPLEEN: Unremarkable. ADRENALS: Unremarkable. No mass. KIDNEYS AND URETERS: Unremarkable. No hydronephrosis. No solid mass. STOMACH AND BOWEL: Unremarkable. No obstruction. No gross mural thickening. APPENDIX: Normal appendix. PERITONEUM: Unremarkable. No free fluid. No free air. LYMPH NODES: Unremarkable. No enlarged lymph nodes. BLADDER: Unremarkable. REPRODUCTIVE: Unremarkable. BONES: No acute fracture. OTHER FINDINGS: Left inguinal adenopathy. There is edema left lower extremity. Venous: The study is performed in the arterial phase and evaluation of the pelvic and lower extremity venous system is limited. IMPRESSION: Unremarkable CT angiogram of the abdomen pelvis and right and left lower extremities. The study is performed arterial phase and unable to assess the pelvic veins are left lower extremity deep and superficial veins. Significant left lower extremity edema.
[2018-08-13 06:25] LABS: BASO # 0.1 K/uL (0.0-0.2); BASO % 0.4 % (0.0-2.0); EOS # 0.1 K/uL (0.0-0.7); EOS % 0.4 % (0.0-4.0); HEMOGLOBIN 10.2 g/dL (12.0-18.0); LYMPH # 2.1 K/uL (1.0-4.3); LYMPH % 11.9 % (20.0-40.0); MEAN CELL VOLUME 96.1 fl (80.0-94.0); MEAN CORPUSCULAR HEMOGLOBIN 31.9 pg (27.0-31.0); MEAN CORPUSCULAR HGB CONC 33.2 g/dL (33.0-37.0); MONO % 5.8 % (0.0-10.0); NEUT % 81.5 % (50.0-75.0); RBC 3.21 Mil/uL (4.40-5.90); RED CELL DISTRIBUTION WIDTH 14.6 % (11.5-14.5); WHITE BLOOD COUNT 17.2 K/uL (4.8-10.8)
[2018-08-13 06:43] LABS: ALB/GLOB RATIO 0.8 (1.0-2.1); ALBUMIN 2.4 g/dL (3.5-5.0); ALT/SGPT 39 U/L (21-72); AST/SGOT 24 U/L (17-59); BLOOD UREA NITROGEN 18 mg/dl (9-20); CALCIUM 7.7 mg/dL (8.4-10.2); GFR NON-AFRICAN AMERICAN > 60
--- NOTE | 2018-08-13 06:47 | CP.PCM.PN ---
Subjective - Date & Time of Evaluation Date of Evaluation: 08/13/18 Time of Evaluation: 06:47 - Subjective Subjective: 72 y/o M, traveler from [place], with No significant PMHx admitted for LLE cellulitis. 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 Patient seen and evaluated at bedside in AM. Patient had temp 101.4 last night which improved with tylenol. Swelling of LLE same as yesterday. Erythema on medial aspect of thigh increasing w/o tightness or tenderness extending upto the groin. As per patient, the leg looks a lot better Objective - Vital Signs/Intake and Output Vital Signs (last 24 hours): Temp Pulse Resp BP Pulse Ox 97.7 F 90 19 114/67 96 08/13/18 05:00 08/13/18 00:09 08/13/18 00:09 08/13/18 00:09 08/13/18 00:09 - Medications Medications: Current Medications Enoxaparin Sodium (Lovenox) 40 mg SC DAILY [facility]UMIKO; Protocol Last Admin: 08/12/18 08:48 Dose: 40 mg Vancomycin HCl 1 gm/ Sodium (Chloride) 250 mls @ 166.667 mls/hr IVPB Q12 [facility]KO; Protocol Last Admin: 08/12/18 20:59 Dose: 166.667 mls/hr Ceftriaxone Sodium 2 gm/ (Sodium Chloride) 100 mls @ 100 mls/hr IVPB DAILY [facility]KO; Protocol Last Admin: 08/12/18 08:48 Dose: 100 mls/hr Ibuprofen (Motrin Tab) 600 mg PO Q6 PRN PRN Reason: Fever >100.4 F Last Admin: 08/12/18 23:50 Dose: 600 mg Ibuprofen (Motrin Tab) 600 mg PO Q6 PRN PRN Reason: Pain, Mild (1-3) Ketorolac Tromethamine (Toradol) 30 mg IVP Q6 PRN PRN Reason: Pain, moderate (4-7) - Labs Labs: 08/13/18 05:43 08/13/18 05:43 - Constitutional Appears: Well, Non-toxic, No Acute Distress - Head Exam Head Exam: ATRAUMATIC, NORMOCEPHALIC - Eye Exam Eye Exam: Normal appearance Pupil Exam: NORMAL ACCOMODATION - ENT Exam ENT Exam: Mucous Membranes Moist - Neck Exam Neck Exam: Normal Inspection - Respiratory Exam Respiratory Exam: Clear to Ausculation Bilateral, NORMAL BREATHING PATTERN - Cardiovascular Exam Cardiovascular Exam: REGULAR RHYTHM, +S1, +S2 - GI/Abdominal Exam GI & Abdominal Exam: Normal Bowel Sounds - Extremities Exam Additional comments: Left leg: Erythema, mild tenderness, pitting edema +2, warmth. Left medial thigh: Erythema, Mild tenderness LLE: clear yellowish discharge oozing - Neurological Exam Neurological Exam: Alert, Awake Assessment and Plan - Assessment and Plan (Free Text) Assessment: 72 yo male patient w/ no significant PMHx admitted with LLE cellulitis. Plan: LLE cellulitis/Lymphangitis, r/o sepsis/DVT - Fever 101.4 last night, BP 95/56, WBC 17.2 - LE doppler: Negative for DVTs - D/C Tylenol and Percocet, Start Ibuprofen for fever and toradol for pain due elevated LFTs. - Continue Vancomycin 1g BID - Continue Ceftriaxone 2gm daily - Elevated left lower ext - C/W NS @ 100 ml/hr - CT Angio- unremarkable - F/U Blood Cx, Wound Cx - ID consulted: appreciate recs - Leg wrapped with MELISSA bandage Leukocytosis - Likely secondary to cellulitis - WBC increasing 14.5>15.4>16.4> 17.2 - Monitor CBC Hyponatremia/Hypokalemia - K 3.7, Na 133 - Continue NS @ 100 ml/hr - K-Dur 40 meq PO once - f/u CMP, Mg(2.1) , Phos(2.9) DVT prophylaxis: - lovenox SC daily Code status: Full code
[2018-08-13] MEDS: Enoxaparin 40 mg Syringe SC SCH (08:17)
[2018-08-13] MEDS: cefTRIAXone 2 GM in Sodium Chloride 0.9% 100 ML IVPB SCH (08:17)
--- NOTE | 2018-08-13 10:12 | CP.PCM.PN ---
Subjective - Date & Time of Evaluation Date of Evaluation: 08/13/18 Time of Evaluation: 10:12 - Subjective Subjective: ID note- Patient seen and examined today. He states he feels fine but he continues o have fever spikes once a day. he thinks the swelling in the leg is lightly less now that compression has been applied to the region as per primary team's suggestion. skin is less tight. Objective - Vital Signs/Intake and Output Vital Signs (last 24 hours): Temp Pulse Resp BP Pulse Ox 97.8 F 70 20 99/54 L 97 08/13/18 08:40 08/13/18 08:40 08/13/18 08:40 08/13/18 08:40 08/13/18 08:40 Intake and Output: 08/13/18 08/13/18 06:59 18:59 Intake Total 300 Balance 300 - Medications Medications: Current Medications Enoxaparin Sodium (Lovenox) 40 mg SC DAILY [facility]KO; Protocol Last Admin: 08/13/18 08:17 Dose: 40 mg Vancomycin HCl 1 gm/ Sodium (Chloride) 250 mls @ 166.667 mls/hr IVPB Q12 [facility]; Protocol Last Admin: 08/13/18 08:12 Dose: 166.667 mls/hr Ceftriaxone Sodium 2 gm/ (Sodium Chloride) 100 mls @ 100 mls/hr IVPB DAILY [facility]; Protocol Last Admin: 08/13/18 08:17 Dose: 100 mls/hr Ibuprofen (Motrin Tab) 600 mg PO Q6 PRN PRN Reason: Fever >100.4 F Last Admin: 08/12/18 23:50 Dose: 600 mg Ibuprofen (Motrin Tab) 600 mg PO Q6 PRN PRN Reason: Pain, Mild (1-3) Ketorolac Tromethamine (Toradol) 30 mg IVP Q6 PRN PRN Reason: Pain, moderate (4-7) - Labs Labs: - Additional Findings Additional findings: - Constitutional Appears: No Acute Distress - Head Exam Head Exam: ATRAUMATIC - Eye Exam Eye Exam: EOMI, PERRL - ENT Exam ENT Exam: Normal Oropharynx - Neck Exam Neck exam: Positive for: Full Rom - Respiratory Exam Respiratory Exam: Clear to Auscultation Bilateral, NORMAL BREATHING PATTERN - Cardiovascular Exam Cardiovascular Exam: RRR, +S1, +S2 - GI/Abdominal Exam GI & Abdominal Exam: Normal Bowel Sounds, Soft Additional comments: NT, ND - Extremities Exam Additional comments: left leg from below knee all the way to foot with extensive edema but edema slightly less today, erythema, but skin is softer , less tight skin, the erythema extends superiorly to medial inner thigh and inferior groin region aswell no open wounds but has weeping edema no ulcers - Neurological Exam Neurological exam: Alert, Oriented x 3 Laboratory Results - last 72 hr 08/11/18 08/11/18 08/11/18 07:46 07:46 07:46 WBC 15.4 H RBC 3.26 L Hgb 10.6 L Hct 31.7 L MCV 97.3 H D MCH 32.5 H MCHC 33.4 RDW 14.2 Plt Count 197 MPV 8.7 Neut % (Auto) 88.4 H Lymph % (Auto) 7.2 L Clare % (Auto) 4.2 Eos % (Auto) 0.1 Baso % (Auto) 0.1 Neut # (Auto) 13.6 H Lymph # (Auto) 1.1 Clare # (Auto) 0.6 Eos # (Auto) 0.0 Baso # (Auto) 0.0 ESR Sodium 130 L Potassium 3.2 L Chloride 100 Carbon Dioxide 21 L Anion Gap 12 BUN 18 Creatinine 1.0 Est GFR ( Amer) > 60 Est GFR (Non-Af Amer) > 60 Random Glucose 97 Serum Osmolality Calcium 7.5 L Phosphorus Magnesium Total Bilirubin AST ALT Alkaline Phosphatase Total Protein Albumin Globulin Albumin/Globulin Ratio Procalcitonin Urine Color Urine Clarity Urine pH Ur Specific [place] Urine Protein Urine Glucose (UA) Urine Ketones Urine Blood Urine Nitrate Urine Bilirubin Urine Urobilinogen Ur Leukocyte Esterase Urine RBC (Auto) Urine Microscopic WBC Ur Squamous Epith Cells Amorphous Sediment Urine Bacteria Hyaline Casts Urine Osmolality Ur Random Sodium Ur Random Potassium Vancomycin Trough 7.1 HIV-1 Ab Rapid Screen 08/11/18 08/11/18 08/11/18 08:54 12:18 13:45 WBC RBC Hgb Hct MCV MCH MCHC RDW Plt Count MPV Neut % (Auto) Lymph % (Auto) Clare % (Auto) Eos % (Auto) Baso % (Auto) Neut # (Auto) Lymph # (Auto) Clare # (Auto) Eos # (Auto) Baso # (Auto) ESR 98 H Sodium Potassium Chloride Carbon Dioxide Anion Gap BUN Creatinine Est GFR ( Amer) Est GFR (Non-Af Amer) Random Glucose Serum Osmolality Calcium Phosphorus 2.9 Magnesium 2.1 Total Bilirubin AST ALT Alkaline Phosphatase Total Protein Albumin Globulin Albumin/Globulin Ratio Procalcitonin Urine Color Urine Clarity Urine pH Ur Specific [place] Urine Protein Urine Glucose (UA) Urine Ketones Urine Blood Urine Nitrate Urine Bilirubin Urine Urobilinogen Ur Leukocyte Esterase Urine RBC (Auto) Urine Microscopic WBC Ur Squamous Epith Cells Amorphous Sediment Urine Bacteria Hyaline Casts Urine Osmolality Ur Random Sodium Ur Random Potassium Vancomycin Trough HIV-1 Ab Rapid Screen Non reactive 08/12/18 08/12/18 08/12/18 05:50 05:50 08:06 WBC 16.4 H RBC 3.14 L Hgb 10.2 L Hct 30.7 L MCV 97.7 H MCH 32.4 H MCHC 33.1 RDW 14.3 Plt Count 217 MPV 8.4 Neut % (Auto) 86.6 H Lymph % (Auto) 8.3 L Clare % (Auto) 4.7 Eos % (Auto) 0.2 Baso % (Auto) 0.2 Neut # (Auto) 14.2 H Lymph # (Auto) 1.4 Clare # (Auto) 0.8 Eos # (Auto) 0.0 Baso # (Auto) 0.0 ESR Sodium 130 L Potassium 3.3 L Chloride 101 Carbon Dioxide 22 Anion Gap 10 BUN 19 Creatinine 1.0 Est GFR ( Amer) > 60 Est GFR (Non-Af Amer) > 60 Random Glucose 113 H Serum Osmolality 272 Calcium 7.5 L Phosphorus Magnesium Total Bilirubin 1.2 AST 22 ALT 46 Alkaline Phosphatase 124 Total Protein 5.3 L Albumin 2.4 L Globulin 2.9 Albumin/Globulin Ratio 0.8 L Procalcitonin Urine Color Urine Clarity Urine pH Ur Specific [place] Urine Protein Urine Glucose (UA) Urine Ketones Urine Blood Urine Nitrate Urine Bilirubin Urine Urobilinogen Ur Leukocyte Esterase Urine RBC (Auto) Urine Microscopic WBC Ur Squamous Epith Cells Amorphous Sediment Urine Bacteria Hyaline Casts Urine Osmolality Ur Random Sodium Ur Random Potassium Vancomycin Trough HIV-1 Ab Rapid Screen 08/12/18 08/13/18 08/13/18 16:40 05:43 05:43 WBC 17.2 H RBC 3.21 L Hgb 10.2 L Hct 30.8 L MCV 96.1 H MCH 31.9 H MCHC 33.2 RDW 14.6 H Plt Count 268 MPV 8.0 Neut % (Auto) 81.5 H Lymph % (Auto) 11.9 L Clare % (Auto) 5.8 Eos % (Auto) 0.4 Baso % (Auto) 0.4 Neut # (Auto) 14.0 H Lymph # (Auto) 2.1 Clare # (Auto) 1.0 H Eos # (Auto) 0.1 Baso # (Auto) 0.1 ESR Sodium 133 Potassium 3.7 Chloride 102 Carbon Dioxide 23 Anion Gap 12 BUN 18 Creatinine 1.1 Est GFR ( Amer) > 60 Est GFR (Non-Af Amer) > 60 Random Glucose 110 Serum Osmolality Calcium 7.7 L Phosphorus Magnesium Total Bilirubin 0.9 AST 24 ALT 39 Alkaline Phosphatase 146 H Total Protein 5.4 L Albumin 2.4 L Globulin 3.0 Albumin/Globulin Ratio 0.8 L Procalcitonin Urine Color Urine Clarity Urine pH Ur Specific [place] Urine Protein Urine Glucose (UA) Urine Ketones Urine Blood Urine Nitrate Urine Bilirubin Urine Urobilinogen Ur Leukocyte Esterase Urine RBC (Auto) Urine Microscopic WBC Ur Squamous Epith Cells Amorphous Sediment Urine Bacteria Hyaline Casts Urine Osmolality 657 Ur Random Sodium 18 Ur Random Potassium 58.9 Vancomycin Trough HIV-1 Ab Rapid Screen 08/13/18 08/13/18 09:24 13:23 WBC RBC Hgb Hct MCV MCH MCHC RDW Plt Count MPV Neut % (Auto) Lymph % (Auto) Clare % (Auto) Eos % (Auto) Baso % (Auto) Neut # (Auto) Lymph # (Auto) Clare # (Auto) Eos # (Auto) Baso # (Auto) ESR Sodium Potassium Chloride Carbon Dioxide Anion Gap BUN Creatinine Est GFR ( Amer) Est GFR (Non-Af Amer) Random Glucose Serum Osmolality Calcium Phosphorus Magnesium Total Bilirubin AST ALT Alkaline Phosphatase Total Protein Albumin Globulin Albumin/Globulin Ratio Procalcitonin 3.06 H Urine Color Nayla Urine Clarity Turbid Urine pH 6.0 Ur Specific [place] 1.025 Urine Protein 100 Urine Glucose (UA) Neg Urine Ketones Negative Urine Blood Small Urine Nitrate Negative Urine Bilirubin Negative Urine Urobilinogen 2.0 Ur Leukocyte Esterase Neg Urine RBC (Auto) 3 Urine Microscopic WBC 2 Ur Squamous Epith Cells < 1 Amorphous Sediment Rare H Urine Bacteria Rare Hyaline Casts 0-2 Urine Osmolality Ur Random Sodium Ur Random Potassium Vancomycin Trough HIV-1 Ab Rapid Screen Microbiology 08/11/18 10:12 Skin - Cellulitis Gram Stain - Final 08/11/18 10:12 Skin - Cellulitis Wound Culture - Preliminary No growth. 08/09/18 21:00 Blood-Venous Blood Culture - Preliminary NO GROWTH AFTER 3 DAYS 08/09/18 20:03 Blood-Venous Blood Culture - Preliminary NO GROWTH AFTER 3 DAYS 08/11/18 16:54 Blood Blood Culture - Preliminary NO GROWTH AFTER 24 HOURS 08/11/18 16:44 Blood Blood Culture - Preliminary NO GROWTH AFTER 24 HOURS Accession No. : [id number] Patient Name / ID : MABEL CASTILLO / [id number] Exam Date : 08/11/2018 12:07:45 ( Approved ) Study Comment : Sex / Age : M / [id number] Creator : Felix Padilla MD Dictator : Felix Padilla MD [employer]ighter : Application Support Manager : Felix Padilla MD Approver2 : Report Date : 08/12/2018 14:44:02 My Comment : Date of service: 08/11/2018 PROCEDURE: CT Angiography Abdomen, Pelvis and Lower Extremity with Contrast HISTORY: R/O abd/pelvic thrombus. L/LE swelling COMPARISON: None available. TECHNIQUE: Technique: CT angiography of the abdomen, pelvis and bilateral lower extremities performed in the arterial phase of enhancement. Coronal and sagittal reformats, and well as rotating MIP images of the vessels generated at the workstation. Intravenous contrast dose: 150 milliliters Visipaque 320 Radiation dose: Total exam DLP = 1277.72 mGy-cm. This CT exam was performed using one or more of the following dose reduction techniques: Automated exposure control, adjustment of the mA and/or kV according to patient size, and/or use of iterative reconstruction technique. FINDINGS: CT ANGIOGRAPHY: ABDOMINAL AORTA:: Mild calcific plaque but otherwise unremarkable. MAJOR AORTIC BRANCHES: Celiac [place]: Unremarkable. Superior mesenteric artery: Unremarkable. Inferior mesenteric artery: Unremarkable. Renal arteries: Unremarkable. PELVIC ARTERIES: Right Common Iliac: Unremarkable. Right External Iliac: Unremarkable. Right Internal Iliac: Unremarkable. Left Common Iliac: Unremarkable. Left External Iliac: Unremarkable. Left Internal Iliac: Unremarkable. RIGHT LOWER EXTREMITY ARTERIES: Right Common Femoral: Unremarkable. Right Superficial Femoral: Unremarkable. Right Profunda Femoris: Unremarkable. Right Popliteal:Unremarkable. Right Anterior Tibial: Unremarkable. Right Tibioperoneal Trunk: Unremarkable. Right Posterior Tibial: Unremarkable. Right Peroneal: Unremarkable. Right dorsalis pedis : Unremarkable. LEFT LOWER EXTREMITY ARTERIES: Left Common Femoral: Unremarkable. Left Superficial Femoral: Unremarkable. Left Profunda Femoris: Unremarkable. Left Popliteal: Unremarkable. Left Anterior Tibial: Unremarkable. Left Tibioperoneal Trunk: Unremarkable. Left Posterior Tibial: Unremarkable. Left Peronea: Unremarkable. Left Dorsalis pedis: Unremarkable. NON-ANGIOGRAPHIC ASPECT OF THE EXAM: LOWER THORAX: Dependent atelectatic changes. LIVER: Unremarkable. No gross lesion or ductal dilatation. GALLBLADDER AND BILE DUCTS: Unremarkable. PANCREAS: Unremarkable. No gross lesion or ductal dilatation. SPLEEN: Unremarkable. ADRENALS: Unremarkable. No mass. KIDNEYS AND URETERS: Unremarkable. No hydronephrosis. No solid mass. STOMACH AND BOWEL: Unremarkable. No obstruction. No gross mural thickening. APPENDIX: Normal appendix. PERITONEUM: Unremarkable. No free fluid. No free air. LYMPH NODES: Unremarkable. No enlarged lymph nodes. BLADDER: Unremarkable. REPRODUCTIVE: Unremarkable. BONES: No acute fracture. OTHER FINDINGS: Left inguinal adenopathy. There is edema left lower extremity. Venous: The study is performed in the arterial phase and evaluation of the pelvic and lower extremity venous system is limited. IMPRESSION: Unremarkable CT angiogram of the abdomen pelvis and right and left lower extremities. The study is performed arterial phase and unable to assess the pelvic veins are left lower extremity deep and superficial veins. Significant left lower extremity edema. Assessment and Plan (1) Cellulitis Status: Acute (2) Sepsis Status: Acute - Assessment and Plan (Free Text) Assessment: A/P- 72 year old male admitted with extensive left leg cellulitis and edema. [id number] last night leukocytosis persists US of LLE - negative for DVT as per report. blood cx- neg x 4 skin cx- prelim -neg plan- advise to increase the vancomyicn dose to 1250 mg BID . today is day #3 of vanco. kep trough between 10-15. continue with ceftriaxone a well day #3. advise to keep leg elevated while in bed to help reduce inflammation and edema. apply warm compresses to the thigh and the leg region every 8 hours as well. monitor temp and wbc. all above d/w patient at length and he verbalizes full understanding of all above and agrees with above plan of care.
[2018-08-13 14:56] LABS: SQUAMOUS EPITHIAL < 1 /hpf (0-5); URINE AMORPHOUS SEDIMENT RARE /ul (<OCC); URINE BACTERIA RARE (<OCC); URINE BILIRUBIN NEGATIVE (NEGATIVE); URINE BLOOD SMALL (NEGATIVE); URINE CLARITY TURBID (Clear); URINE COLOR AMBER (YELLOW); URINE GLUCOSE (UA) NEG (NEGATIVE); URINE HYALINE CAST 0-2 /hpf (0-2); URINE LEUKOCYTE ESTERASE NEG Leu/uL (Negative); URINE PROTEIN 100 mg/dL (NEGATIVE)
[2018-08-14 08:44] LABS: BASO % 0.3 % (0.0-2.0); EOS # 0.1 K/uL (0.0-0.7); EOS % 0.5 % (0.0-4.0); HEMOGLOBIN 10.6 g/dL (12.0-18.0); LYMPH # 2.5 K/uL (1.0-4.3); LYMPH % 14.4 % (20.0-40.0); MEAN CELL VOLUME 95.3 fl (80.0-94.0); MEAN CORPUSCULAR HEMOGLOBIN 32.5 pg (27.0-31.0); MEAN CORPUSCULAR HGB CONC 34.1 g/dL (33.0-37.0); MEAN PLATELET VOLUME 8.2 fl (7.2-11.7); MONO # 0.8 K/uL (0.0-0.8); MONO % 4.8 % (0.0-10.0); RBC 3.26 Mil/uL (4.40-5.90); RED CELL DISTRIBUTION WIDTH 14.8 % (11.5-14.5); WHITE BLOOD COUNT 17.5 K/uL (4.8-10.8)
[2018-08-14 08:58] LABS: ALB/GLOB RATIO 0.8 (1.0-2.1); ALBUMIN 2.6 g/dL (3.5-5.0); ALT/SGPT 39 U/L (21-72); AST/SGOT 53 U/L (17-59); BLOOD UREA NITROGEN 14 mg/dl (9-20); GFR NON-AFRICAN AMERICAN > 60
--- NOTE | 2018-08-14 09:40 | CP.PCM.PN ---
Subjective - Date & Time of Evaluation Date of Evaluation: 08/14/18 Time of Evaluation: 09:30 - Subjective Subjective: Patient seen at bedside in not acute distress. No acute events and afebrile overnight. Patient denies pain in the LE. Tolerating PO diet. Denies nausea, vomiting or changes in urination or stools. Objective - Vital Signs/Intake and Output Vital Signs (last 24 hours): Temp Pulse Resp BP Pulse Ox 98.6 F 86 20 135/70 93 L 08/14/18 08:19 08/14/18 08:19 08/14/18 08:19 08/14/18 08:19 08/14/18 08:19 - Medications Medications: Current Medications Enoxaparin Sodium (Lovenox) 40 mg SC DAILY [facility]; Protocol Last Admin: 08/13/18 08:17 Dose: 40 mg Ceftriaxone Sodium 2 gm/ (Sodium Chloride) 100 mls @ 100 mls/hr IVPB DAILY [facility]; Protocol Last Admin: 08/13/18 08:17 Dose: 100 mls/hr Vancomycin HCl 1,250 mg/ (Sodium Chloride) 250 mls @ 125 mls/hr IVPB Q12H [facility]; Protocol Last Admin: 08/14/18 04:09 Dose: 125 mls/hr Ibuprofen (Motrin Tab) 600 mg PO Q6 PRN PRN Reason: Fever >100.4 F Last Admin: 08/12/18 23:50 Dose: 600 mg Ibuprofen (Motrin Tab) 600 mg PO Q6 PRN PRN Reason: Pain, Mild (1-3) Ketorolac Tromethamine (Toradol) 30 mg IVP Q6 PRN PRN Reason: Pain, moderate (4-7) - Labs Labs: 08/14/18 06:30 08/14/18 06:30 - Constitutional Appears: Non-toxic - Eye Exam Eye Exam: EOMI, PERRL - ENT Exam ENT Exam: Mucous Membranes Moist - Respiratory Exam Respiratory Exam: Clear to Ausculation Bilateral, NORMAL BREATHING PATTERN. absent: Respiratory Distress - Cardiovascular Exam Cardiovascular Exam: REGULAR RHYTHM, +S1, +S2. absent: Gallop - GI/Abdominal Exam GI & Abdominal Exam: Soft, Normal Bowel Sounds. absent: Distended, Rigid, Tenderness - Extremities Exam Extremities Exam: Normal Capillary Refill. absent: Calf Tenderness, Normal Inspection (Left LE erythema present in anterior and lateral aspect of leg, less in posterior leg that extends to inner and anterior thigh. Skin breakdown in anterolateral areas of leg with mild swelling that seems improved. Some spots of ecchymotic areas diffuse in anterior leg) - Neurological Exam Neurological Exam: Alert, Awake, Oriented x3. absent: Motor Sensory Deficit Assessment and Plan - Assessment and Plan (Free Text) Assessment: Assessment: 72 yo male patient w/ no significant PMHx admitted with LLE cellulitis. LLE cellulitis/Lymphangitis - Acute - Afebrile overnight. - WBC still 17s - LE doppler and CT angio with run off both negative for DVTs - Continue Vancomycin 1.25g q12h - C/w Ceftriaxone 2gm daily - Elevated leg - NO IV fluids due to suspected SIADH - All Blood Cx and Wound Cx no growth - ID consulted on board. 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 Continue at 1200 ml/day - K 3.5, Na 134 today - K-Dur 20 meq PO once - Monitor Anemia - Acute, mild, macrocitic - Will send for B12 and Folate DVT prophylaxis: - lovenox SC daily Code status: Full code
[2018-08-14] MEDS: Enoxaparin 40 mg Syringe SC SCH (09:42)
[2018-08-14] MEDS: cefTRIAXone 2 GM in Sodium Chloride 0.9% 100 ML IVPB SCH (09:42)
[2018-08-14] MEDS ORDERED: Potassium Chloride 20 mEq ER Tab PO ONE (09:48)
--- NOTE | 2018-08-14 13:41 | CP.PCM.PN ---
Subjective - Date & Time of Evaluation Date of Evaluation: 08/14/18 Time of Evaluation: 13:40 - Subjective Subjective: ID Note- Youngn seen and examined today. He is afebrile toda. Still has leukocytosis. denies any other complaints other than the left leg erythema and edema . edema is less than yesterday. Objective - Vital Signs/Intake and Output Vital Signs (last 24 hours): Temp Pulse Resp BP Pulse Ox 98.6 F 86 20 135/70 93 L 08/14/18 08:19 08/14/18 08:19 08/14/18 08:19 08/14/18 08:19 08/14/18 08:19 - Medications Medications: Current Medications Enoxaparin Sodium (Lovenox) 40 mg SC DAILY [facility]KO; Protocol Last Admin: 08/14/18 09:42 Dose: 40 mg Ceftriaxone Sodium 2 gm/ (Sodium Chloride) 100 mls @ 100 mls/hr IVPB DAILY [facility]; Protocol Last Admin: 08/14/18 09:42 Dose: 100 mls/hr Vancomycin HCl 1,250 mg/ (Sodium Chloride) 250 mls @ 125 mls/hr IVPB Q12H [facility]; Protocol Last Admin: 08/14/18 04:09 Dose: 125 mls/hr Ibuprofen (Motrin Tab) 600 mg PO Q6 PRN PRN Reason: Fever >100.4 F Last Admin: 08/12/18 23:50 Dose: 600 mg Ibuprofen (Motrin Tab) 600 mg PO Q6 PRN PRN Reason: Pain, Mild (1-3) Ketorolac Tromethamine (Toradol) 30 mg IVP Q6 PRN PRN Reason: Pain, moderate (4-7) - Labs Labs: - Additional Findings Additional findings: - Constitutional Appears: No Acute Distress - Head Exam Head Exam: ATRAUMATIC - Eye Exam Eye Exam: EOMI, PERRL - ENT Exam ENT Exam: Normal Oropharynx - Neck Exam Neck exam: Positive for: Full Rom - Respiratory Exam Respiratory Exam: Clear to Auscultation Bilateral, NORMAL BREATHING PATTERN - Cardiovascular Exam Cardiovascular Exam: RRR, +S1, +S2 - GI/Abdominal Exam GI & Abdominal Exam: Normal Bowel Sounds, Soft Additional comments: NT, ND - Extremities Exam Additional comments: left leg from below knee all the way to foot with extensive erythema still but edema less today, but skin is softer , less tight skin, the erythema extends superiorly to medial inner thigh and inferior groin region as well but less than yesterday weeping edema of the LLE from knee down withescoriated skin no malodor no ulcers - Neurological Exam Neurological exam: Alert, Oriented x 3 Laboratory Results - last 72 hr 08/11/18 08/12/18 08/12/18 13:45 05:50 05:50 WBC 16.4 H RBC 3.14 L Hgb 10.2 L Hct 30.7 L MCV 97.7 H MCH 32.4 H MCHC 33.1 RDW 14.3 Plt Count 217 MPV 8.4 Neut % (Auto) 86.6 H Lymph % (Auto) 8.3 L [place] % (Auto) 4.7 Eos % (Auto) 0.2 Baso % (Auto) 0.2 Neut # (Auto) 14.2 H Lymph # (Auto) 1.4 [place] # (Auto) 0.8 Eos # (Auto) 0.0 Baso # (Auto) 0.0 Sodium 130 L Potassium 3.3 L Chloride 101 Carbon Dioxide 22 Anion Gap 10 BUN 19 Creatinine 1.0 Est GFR ( Amer) > 60 Est GFR (Non-Af Amer) > 60 Random Glucose 113 H Serum Osmolality Calcium 7.5 L Total Bilirubin 1.2 AST 22 ALT 46 Alkaline Phosphatase 124 Total Protein 5.3 L Albumin 2.4 L Globulin 2.9 Albumin/Globulin Ratio 0.8 L Vitamin B12 Procalcitonin TSH 3rd Generation Urine Color Urine Clarity Urine pH Ur Specific [place] Urine Protein Urine Glucose (UA) Urine Ketones Urine Blood Urine Nitrate Urine Bilirubin Urine Urobilinogen Ur Leukocyte Esterase Urine RBC (Auto) Urine Microscopic WBC Ur Squamous Epith Cells Amorphous Sediment Urine Bacteria Hyaline Casts Urine Osmolality Ur Random Sodium Ur Random Potassium HIV-1 Ab Rapid Screen Non reactive 08/12/18 08/12/18 08/13/18 08:06 16:40 05:43 WBC 17.2 H RBC 3.21 L Hgb 10.2 L Hct 30.8 L MCV 96.1 H MCH 31.9 H MCHC 33.2 RDW 14.6 H Plt Count 268 MPV 8.0 Neut % (Auto) 81.5 H Lymph % (Auto) 11.9 L [place] % (Auto) 5.8 Eos % (Auto) 0.4 Baso % (Auto) 0.4 Neut # (Auto) 14.0 H Lymph # (Auto) 2.1 [place] # (Auto) 1.0 H Eos # (Auto) 0.1 Baso # (Auto) 0.1 Sodium Potassium Chloride Carbon Dioxide Anion Gap BUN Creatinine Est GFR ( Amer) Est GFR (Non-Af Amer) Random Glucose Serum Osmolality 272 Calcium Total Bilirubin AST ALT Alkaline Phosphatase Total Protein Albumin Globulin Albumin/Globulin Ratio Vitamin B12 Procalcitonin TSH 3rd Generation Urine Color Urine Clarity Urine pH Ur Specific [place] Urine Protein Urine Glucose (UA) Urine Ketones Urine Blood Urine Nitrate Urine Bilirubin Urine Urobilinogen Ur Leukocyte Esterase Urine RBC (Auto) Urine Microscopic WBC Ur Squamous Epith Cells Amorphous Sediment Urine Bacteria Hyaline Casts Urine Osmolality 657 Ur Random Sodium 18 Ur Random Potassium 58.9 HIV-1 Ab Rapid Screen 08/13/18 08/13/18 08/13/18 05:43 09:24 13:23 WBC RBC Hgb Hct MCV MCH MCHC RDW Plt Count MPV Neut % (Auto) Lymph % (Auto) [place] % (Auto) Eos % (Auto) Baso % (Auto) Neut # (Auto) Lymph # (Auto) [place] # (Auto) Eos # (Auto) Baso # (Auto) Sodium 133 Potassium 3.7 Chloride 102 Carbon Dioxide 23 Anion Gap 12 BUN 18 Creatinine 1.1 Est GFR ( Amer) > 60 Est GFR (Non-Af Amer) > 60 Random Glucose 110 Serum Osmolality Calcium 7.7 L Total Bilirubin 0.9 AST 24 ALT 39 Alkaline Phosphatase 146 H Total Protein 5.4 L Albumin 2.4 L Globulin 3.0 Albumin/Globulin Ratio 0.8 L Vitamin B12 Procalcitonin 3.06 H TSH 3rd Generation Urine Color Nayla Urine Clarity Turbid Urine pH 6.0 Ur Specific [place] 1.025 Urine Protein 100 Urine Glucose (UA) Neg Urine Ketones Negative Urine Blood Small Urine Nitrate Negative Urine Bilirubin Negative Urine Urobilinogen 2.0 Ur Leukocyte Esterase Neg Urine RBC (Auto) 3 Urine Microscopic WBC 2 Ur Squamous Epith Cells < 1 Amorphous Sediment Rare H Urine Bacteria Rare Hyaline Casts 0-2 Urine Osmolality Ur Random Sodium Ur Random Potassium HIV-1 Ab Rapid Screen 08/14/18 08/14/18 08/14/18 06:30 06:30 11:03 WBC 17.5 H RBC 3.26 L Hgb 10.6 L Hct 31.1 L MCV 95.3 H MCH 32.5 H MCHC 34.1 RDW 14.8 H Plt Count 373 D MPV 8.2 Neut % (Auto) 80.0 H Lymph % (Auto) 14.4 L [place] % (Auto) 4.8 Eos % (Auto) 0.5 Baso % (Auto) 0.3 Neut # (Auto) 14.0 H Lymph # (Auto) 2.5 [place] # (Auto) 0.8 Eos # (Auto) 0.1 Baso # (Auto) 0.0 Sodium 134 Potassium 3.5 L Chloride 101 Carbon Dioxide 23 Anion Gap 14 BUN 14 Creatinine 1.0 Est GFR ( Amer) > 60 Est GFR (Non-Af Amer) > 60 Random Glucose 111 H Serum Osmolality Calcium 8.0 L Total Bilirubin 0.8 AST 53 ALT 39 Alkaline Phosphatase 209 H D Total Protein 5.9 L Albumin 2.6 L Globulin 3.3 Albumin/Globulin Ratio 0.8 L Vitamin B12 > 1000 H Procalcitonin TSH 3rd Generation 5.86 H Urine Color Urine Clarity Urine pH Ur Specific [place] Urine Protein Urine Glucose (UA) Urine Ketones Urine Blood Urine Nitrate Urine Bilirubin Urine Urobilinogen Ur Leukocyte Esterase Urine RBC (Auto) Urine Microscopic WBC Ur Squamous Epith Cells Amorphous Sediment Urine Bacteria Hyaline Casts Urine Osmolality Ur Random Sodium Ur Random Potassium HIV-1 Ab Rapid Screen Microbiology 08/11/18 10:12 Skin - Cellulitis Gram Stain - Final 08/11/18 10:12 Skin - Cellulitis Wound Culture - Final No growth. 08/13/18 02:24 Blood-Venous Blood Culture - Preliminary NO GROWTH AFTER 24 HOURS 08/09/18 21:00 Blood-Venous Blood Culture - Preliminary NO GROWTH AFTER 4 DAYS 08/09/18 20:03 Blood-Venous Blood Culture - Preliminary NO GROWTH AFTER 4 DAYS 08/11/18 16:54 Blood Blood Culture - Preliminary NO GROWTH AFTER 48 HOURS 08/11/18 16:44 Blood Blood Culture - Preliminary NO GROWTH AFTER 48 HOURS Assessment and Plan (1) Cellulitis Status: Acute (2) Sepsis Status: Acute - Assessment and Plan (Free Text) Assessment: A/P- 72 year old male admitted with extensive left leg cellulitis and edema. afebrile today so far leukocytosis persists US of LLE - negative for DVT as per report. blood cx- neg x 4 skin cx- prelim -neg ESR- very high high alp plan-continue with weight based dose vancomycin. today is day #4 of vanco. keep trough between 10-15. completed 4 days of IV ceftriaxone. d/c ceftriaxone today. advise to keep leg elevated while in bed to help reduce inflammation and edema. apply warm compresses to the thigh and the leg region every 8 hours as well. monitor temp and wbc. advise to check LLE MRI vs CT if no improvemnt by next 1-2 days rule out any muscle involvement or abscess collection. check 2 more blood cx. all above d/w patient at length and he verbalizes full understanding of all above and agrees with above plan of care.
[2018-08-15 04:55] LABS: BASO # 0.1 K/uL (0.0-0.2); BASO % 0.5 % (0.0-2.0); EOS # 0.1 K/uL (0.0-0.7); EOS % 0.8 % (0.0-4.0); HEMOGLOBIN 9.9 g/dL (12.0-18.0); LYMPH # 2.5 K/uL (1.0-4.3); LYMPH % 17.5 % (20.0-40.0); MEAN CELL VOLUME 93.9 fl (80.0-94.0); MEAN CORPUSCULAR HEMOGLOBIN 31.8 pg (27.0-31.0); MEAN CORPUSCULAR HGB CONC 33.9 g/dL (33.0-37.0); MEAN PLATELET VOLUME 7.5 fl (7.2-11.7); MONO # 0.9 K/uL (0.0-0.8); MONO % 6.6 % (0.0-10.0); NEUT # 10.6 K/uL (1.8-7.0); NEUT % 74.6 % (50.0-75.0); RBC 3.13 Mil/uL (4.40-5.90); RED CELL DISTRIBUTION WIDTH 14.7 % (11.5-14.5); WHITE BLOOD COUNT 14.2 K/uL (4.8-10.8)
[2018-08-15 05:06] LABS: BLOOD UREA NITROGEN 14 mg/dl (9-20); CALCIUM 7.6 mg/dL (8.4-10.2); GFR NON-AFRICAN AMERICAN > 60
[2018-08-15] MEDS: Enoxaparin 40 mg Syringe SC SCH (09:19)
--- NOTE | 2018-08-15 12:39 | CP.PCM.PN ---
Subjective - Date & Time of Evaluation Date of Evaluation: 08/15/18 Time of Evaluation: 10:00 - Subjective Subjective: Seen at bedside. No acute events overnight. Feeling better. Afebrile overnight. Tolerating PO. No acute changes in urination or stools. Grandson at bedside. Encouraged to keep leg elevated while in bed. Denies CP, calf pain, SOB, abd pa in, vomiting, dizziness or nausea. Objective - Vital Signs/Intake and Output Vital Signs (last 24 hours): Temp Pulse Resp BP Pulse Ox 97.8 F 74 20 124/69 94 L 08/15/18 09:33 08/15/18 09:33 08/15/18 09:33 08/15/18 09:33 08/15/18 09:33 - Medications Medications: Current Medications Enoxaparin Sodium (Lovenox) 40 mg SC DAILY [facility]; Protocol Last Admin: 08/15/18 09:19 Dose: 40 mg Vancomycin HCl 1,250 mg/ (Sodium Chloride) 250 mls @ 125 mls/hr IVPB Q12H [facility]; Protocol Last Admin: 08/15/18 05:09 Dose: 125 mls/hr Ibuprofen (Motrin Tab) 600 mg PO Q6 PRN PRN Reason: Fever >100.4 F Last Admin: 08/12/18 23:50 Dose: 600 mg Ibuprofen (Motrin Tab) 600 mg PO Q6 PRN PRN Reason: Pain, Mild (1-3) Ketorolac Tromethamine (Toradol) 30 mg IVP Q6 PRN PRN Reason: Pain, moderate (4-7) - Labs Labs: 08/15/18 04:25 08/15/18 04:25 - Constitutional Appears: Non-toxic, No Acute Distress - Eye Exam Eye Exam: EOMI, PERRL - ENT Exam ENT Exam: Mucous Membranes Moist - Respiratory Exam Respiratory Exam: NORMAL BREATHING PATTERN. absent: Respiratory Distress, Stridor - Cardiovascular Exam Cardiovascular Exam: +S1, +S2. absent: Gallop - GI/Abdominal Exam GI & Abdominal Exam: Soft. absent: Tenderness - Extremities Exam Extremities Exam: Full ROM, Normal Capillary Refill, Pedal Edema (left leg). absent: Calf Tenderness, Normal Inspection (left leg erythema, edema extending from metatarsal area to knees circunferential and then anterior and medial thigh. Nontender. Skin breakdown in leg. Oozing clear yellowish drainage from skin in lower leg.) Assessment and Plan - Assessment and Plan (Free Text) Assessment: 72 yo male patient w/ no significant PMHx admitted with LLE cellulitis. LLE cellulitis/Lymphangitis - Acute. Improved - Afebrile for 48 hours - WBC trending down 14.2 today - LE doppler and CT angio with run off both negative for DVTs and soft tissue collections - Edema markedly improved. Still oozing. Dressing changed at bedside. - Continue Vancomycin 1.25g q12h - DC Ceftriaxone 2gm daily as per ID recs - Elevated leg - NO IV fluids due to suspected SIADH - All Blood Cx and Wound Cx no growth - ID consulted on board. 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 Continue at 1200 ml/day - Stable - Monitor BMP Anemia - Acute, mild, macrocitic - Vit B12 high. Folate pending TSH elevation -Mild -Poss due to acute inflammation -F/U as outpatient DVT prophylaxis: - lovenox SC daily Code status: Full code
[2018-08-16 06:32] LABS: BASO % 0.4 % (0.0-2.0); EOS # 0.1 K/uL (0.0-0.7); EOS % 0.7 % (0.0-4.0); HEMOGLOBIN 9.8 g/dL (12.0-18.0); LYMPH # 2.4 K/uL (1.0-4.3); LYMPH % 20.1 % (20.0-40.0); MEAN CORPUSCULAR HEMOGLOBIN 31.8 pg (27.0-31.0); MEAN CORPUSCULAR HGB CONC 33.4 g/dL (33.0-37.0); MEAN PLATELET VOLUME 7.5 fl (7.2-11.7); MONO # 0.8 K/uL (0.0-0.8); MONO % 6.5 % (0.0-10.0); NEUT # 8.5 K/uL (1.8-7.0); NEUT % 72.3 % (50.0-75.0); RBC 3.08 Mil/uL (4.40-5.90); RED CELL DISTRIBUTION WIDTH 14.8 % (11.5-14.5); WHITE BLOOD COUNT 11.8 K/uL (4.8-10.8)
[2018-08-16 06:41] LABS: BLOOD UREA NITROGEN 13 mg/dl (9-20); CALCIUM 7.7 mg/dL (8.4-10.2); GFR NON-AFRICAN AMERICAN > 60
[2018-08-16] MEDS: Enoxaparin 40 mg Syringe SC SCH (08:30)
--- NOTE | 2018-08-16 09:35 | CP.PCM.PN ---
Subjective - Date & Time of Evaluation Date of Evaluation: 08/16/18 Time of Evaluation: 09:35 - Subjective Subjective: ID Note- Patient seen and examined today with his at his bedside. patient afebrile past 48 hours and wbc finally decreasing. his LLE cellulitis improving but still clear oozing from the skin secondary to edema decreasing. Objective - Vital Signs/Intake and Output Vital Signs (last 24 hours): Temp Pulse Resp BP Pulse Ox 99.0 F 78 20 118/68 97 08/16/18 08:15 08/16/18 08:15 08/16/18 08:15 08/16/18 08:15 08/16/18 08:15 - Medications Medications: Current Medications Enoxaparin Sodium (Lovenox) 40 mg SC DAILY [facility]; Protocol Last Admin: 08/16/18 08:30 Dose: 40 mg Vancomycin HCl 1,250 mg/ (Sodium Chloride) 250 mls @ 125 mls/hr IVPB Q12H [facility]; Protocol Last Admin: 08/16/18 04:32 Dose: 125 mls/hr Ibuprofen (Motrin Tab) 600 mg PO Q6 PRN PRN Reason: Fever >100.4 F Last Admin: 08/12/18 23:50 Dose: 600 mg Ibuprofen (Motrin Tab) 600 mg PO Q6 PRN PRN Reason: Pain, Mild (1-3) Ketorolac Tromethamine (Toradol) 30 mg IVP Q6 PRN PRN Reason: Pain, moderate (4-7) - Labs Labs: - Additional Findings Additional findings: - Constitutional Appears: No Acute Distress - Head Exam Head Exam: ATRAUMATIC - Eye Exam Eye Exam: EOMI, PERRL - ENT Exam ENT Exam: Normal Oropharynx - Neck Exam Neck exam: Positive for: Full Rom - Respiratory Exam Respiratory Exam: Clear to Auscultation Bilateral, NORMAL BREATHING PATTERN - Cardiovascular Exam Cardiovascular Exam: RRR, +S1, +S2 - GI/Abdominal Exam GI & Abdominal Exam: Normal Bowel Sounds, Soft Additional comments: NT, ND - Extremities Exam Additional comments: left leg from below knee all the way to foot with extensive erythema still but edema much less today, thigh region and groin region erythema much less almost resolved. weeping edema of the LLE from knee down with escoriated skin no malodor no ulcers - Neurological Exam Neurological exam: Alert, Oriented x 3 Laboratory Results - last 72 hr 08/13/18 08/14/18 08/14/18 13:23 06:30 06:30 WBC 17.5 H RBC 3.26 L Hgb 10.6 L Hct 31.1 L MCV 95.3 H MCH 32.5 H MCHC 34.1 RDW 14.8 H Plt Count 373 D MPV 8.2 Neut % (Auto) 80.0 H Lymph % (Auto) 14.4 L [place] % (Auto) 4.8 Eos % (Auto) 0.5 Baso % (Auto) 0.3 Neut # (Auto) 14.0 H Lymph # (Auto) 2.5 Valley # (Auto) 0.8 Eos # (Auto) 0.1 Baso # (Auto) 0.0 Sodium 134 Potassium 3.5 L Chloride 101 Carbon Dioxide 23 Anion Gap 14 BUN 14 Creatinine 1.0 Est GFR ( Amer) > 60 Est GFR (Non-Af Amer) > 60 Random Glucose 111 H Calcium 8.0 L Total Bilirubin 0.8 AST 53 ALT 39 Alkaline Phosphatase 209 H D Total Protein 5.9 L Albumin 2.6 L Globulin 3.3 Albumin/Globulin Ratio 0.8 L Vitamin B12 Folate TSH 3rd Generation Urine Color Nayla Urine Clarity Turbid Urine pH 6.0 Ur Specific [place] 1.025 Urine Protein 100 Urine Glucose (UA) Neg Urine Ketones Negative Urine Blood Small Urine Nitrate Negative Urine Bilirubin Negative Urine Urobilinogen 2.0 Ur Leukocyte Esterase Neg Urine RBC (Auto) 3 Urine Microscopic WBC 2 Ur Squamous Epith Cells < 1 Amorphous Sediment Rare H Urine Bacteria Rare Hyaline Casts 0-2 Vancomycin Trough 08/14/18 08/15/18 08/15/18 11:03 04:00 04:25 WBC 14.2 H RBC 3.13 L Hgb 9.9 L Hct 29.4 L MCV 93.9 MCH 31.8 H MCHC 33.9 RDW 14.7 H Plt Count 396 MPV 7.5 Neut % (Auto) 74.6 Lymph % (Auto) 17.5 L Valley % (Auto) 6.6 Eos % (Auto) 0.8 Baso % (Auto) 0.5 Neut # (Auto) 10.6 H Lymph # (Auto) 2.5 Valley # (Auto) 0.9 H Eos # (Auto) 0.1 Baso # (Auto) 0.1 Sodium Potassium Chloride Carbon Dioxide Anion Gap BUN Creatinine Est GFR ( Amer) Est GFR (Non-Af Amer) Random Glucose Calcium Total Bilirubin AST ALT Alkaline Phosphatase Total Protein Albumin Globulin Albumin/Globulin Ratio Vitamin B12 > 1000 H Folate 7.9 TSH 3rd Generation 5.86 H Urine Color Urine Clarity Urine pH Ur Specific [place] Urine Protein Urine Glucose (UA) Urine Ketones Urine Blood Urine Nitrate Urine Bilirubin Urine Urobilinogen Ur Leukocyte Esterase Urine RBC (Auto) Urine Microscopic WBC Ur Squamous Epith Cells Amorphous Sediment Urine Bacteria Hyaline Casts Vancomycin Trough 12.5 H 08/15/18 08/16/18 08/16/18 04:25 05:30 05:30 WBC 11.8 H RBC 3.08 L Hgb 9.8 L Hct 29.3 L MCV 95.0 H MCH 31.8 H MCHC 33.4 RDW 14.8 H Plt Count 473 H MPV 7.5 Neut % (Auto) 72.3 Lymph % (Auto) 20.1 Valley % (Auto) 6.5 Eos % (Auto) 0.7 Baso % (Auto) 0.4 Neut # (Auto) 8.5 H Lymph # (Auto) 2.4 Valley # (Auto) 0.8 Eos # (Auto) 0.1 Baso # (Auto) 0.0 Sodium 132 135 Potassium 3.6 3.8 Chloride 102 103 Carbon Dioxide 23 26 Anion Gap 11 10 BUN 14 13 Creatinine 0.9 0.9 Est GFR ( Amer) > 60 > 60 Est GFR (Non-Af Amer) > 60 > 60 Random Glucose 117 H 112 H Calcium 7.6 L 7.7 L Total Bilirubin AST ALT Alkaline Phosphatase Total Protein Albumin Globulin Albumin/Globulin Ratio Vitamin B12 Folate TSH 3rd Generation Urine Color Urine Clarity Urine pH Ur Specific [place] Urine Protein Urine Glucose (UA) Urine Ketones Urine Blood Urine Nitrate Urine Bilirubin Urine Urobilinogen Ur Leukocyte Esterase Urine RBC (Auto) Urine Microscopic WBC Ur Squamous Epith Cells Amorphous Sediment Urine Bacteria Hyaline Casts Vancomycin Trough Microbiology 08/13/18 02:24 Blood-Venous Blood Culture - Preliminary NO GROWTH AFTER 3 DAYS 08/11/18 16:54 Blood Blood Culture - Preliminary NO GROWTH AFTER 4 DAYS 08/11/18 16:44 Blood Blood Culture - Preliminary NO GROWTH AFTER 4 DAYS 08/09/18 21:00 Blood-Venous Blood Culture - Final NO GROWTH AFTER 5 DAYS 08/09/18 21:00 Blood-Venous Gram Stain - Final TEST NOT PERFORMED 08/09/18 20:03 Blood-Venous Blood Culture - Final NO GROWTH AFTER 5 DAYS 08/09/18 20:03 Blood-Venous Gram Stain - Final TEST NOT PERFORMED 08/11/18 10:12 Skin - Cellulitis Gram Stain - Final 08/11/18 10:12 Skin - Cellulitis Wound Culture - Final No growth. Assessment and Plan (1) Cellulitis Status: Acute (2) Sepsis Status: Acute - Assessment and Plan (Free Text) Assessment: A/P- 72 year old male admitted with extensive left leg cellulitis and edema. clinically improving afebrile past 48 hours leukocytosis trending down today. US of LLE - negative for DVT as per report. blood cx- neg x 4 skin cx- prelim -neg ESR- very high high alp plan- continue with weight based dose vancomycin. today is day #6 of vanco. keep trough between 10-15. completed 4 days of IV ceftriaxone. advise to keep leg elevated while in bed to help reduce inflammation and edema. apply warm compresses to the thigh and the leg region every 8 hours as well. advise based on severity of his cellulitis advise at least another week ofg IV abx. if possible he can get picc and complete the rest of his abx duration at home with BID vancomycin. all above d/w patient at length and he verbalizes full understanding of all above and agrees with above plan of care.
[2018-08-16 12:29] LABS: FOLATE 7.9 ng/mL
--- NOTE | 2018-08-16 13:40 | CP.PCM.PN ---
<Bryn Wang - Last Filed: 08/16/18 13:37> Subjective - Date & Time of Evaluation Date of Evaluation: 08/16/18 Time of Evaluation: 09:40 - Subjective Subjective: Patient seen and evaluated at bedside in AM. Left lower extremity swelling improving in size. Patient afebrile for > 48 hours. Patient continues to have oozing serous liquid but significantly less compare to prior days. Last dressing changed 4AM today. Patient denies any fever, chills, CP, SOB, N/V/D, Leg pain or calf tenderness. Patient responding well to redosed vancomycin. ID on board. Objective - Vital Signs/Intake and Output Vital Signs (last 24 hours): Temp Pulse Resp BP Pulse Ox 99.0 F 78 20 118/68 97 08/16/18 08:15 08/16/18 08:15 08/16/18 08:15 08/16/18 08:15 08/16/18 08:15 - Medications Medications: Current Medications Enoxaparin Sodium (Lovenox) 40 mg SC DAILY [facility]; Protocol Last Admin: 08/16/18 08:30 Dose: 40 mg Vancomycin HCl 1,250 mg/ (Sodium Chloride) 250 mls @ 125 mls/hr IVPB Q12H [facility]; Protocol Last Admin: 08/16/18 04:32 Dose: 125 mls/hr Ibuprofen (Motrin Tab) 600 mg PO Q6 PRN PRN Reason: Fever >100.4 F Last Admin: 08/12/18 23:50 Dose: 600 mg Ibuprofen (Motrin Tab) 600 mg PO Q6 PRN PRN Reason: Pain, Mild (1-3) Ketorolac Tromethamine (Toradol) 30 mg IVP Q6 PRN PRN Reason: Pain, moderate (4-7) - Labs Labs: 08/16/18 05:30 08/16/18 05:30 - Constitutional Appears: No Acute Distress - Head Exam Head Exam: ATRAUMATIC, NORMOCEPHALIC - Eye Exam Eye Exam: Normal appearance - ENT Exam ENT Exam: Mucous Membranes Moist - Neck Exam Neck Exam: Full ROM - Respiratory Exam Respiratory Exam: Clear to Ausculation Bilateral, NORMAL BREATHING PATTERN. absent: Rales, Rhonchi, Wheezes, Respiratory Distress - Cardiovascular Exam Cardiovascular Exam: REGULAR RHYTHM, +S1, +S2. absent: Murmur - GI/Abdominal Exam GI & Abdominal Exam: Soft, Normal Bowel Sounds. absent: Distended, Tenderness - Extremities Exam Extremities Exam: Pedal Edema. absent: Calf Tenderness, Joint Swelling, Tenderness Additional comments: LLE swelling significantly improved. Dressing partially soaked with discharge. - Neurological Exam Neurological Exam: Alert, Awake, Oriented x3 - Psychiatric Exam Psychiatric exam: Normal Affect, Normal Mood - Skin Skin Exam: Dry, Intact, Normal Color, Warm Assessment and Plan - Assessment and Plan (Free Text) Assessment: 72 yo male patient w/ no significant PMHx admitted with LLE cellulitis. Patient improving on redosed vancomycin. Plan: LLE cellulitis - Acute. Improving - Afebrile for 48 hours - WBC trending down 11.8 today - LE doppler and CT angio with run off both negative for DVTs and soft tissue collections - Edema markedly improved. Still oozing. Dressing changed at bedside. 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 Continue at 1200 ml/day - Stable - Monitor BMP Anemia - Acute, mild, macrocitic - Vit B12 high. Folate pending TSH elevation -Mild -Poss due to acute inflammation -F/U as outpatient DVT prophylaxis: - lovenox SC daily Code status: Full code <Bonnie Hernandez - Last Filed: 08/16/18 16:25> Objective - Vital Signs/Intake and Output Vital Signs (last 24 hours): Temp Pulse Resp BP Pulse Ox 99 F 81 18 118/68 95 08/16/18 16:02 08/16/18 16:02 08/16/18 16:02 08/16/18 16:02 08/16/18 16:02 - Medications Medications: Current Medications Enoxaparin Sodium (Lovenox) 40 mg SC DAILY [facility]; Protocol Last Admin: 08/16/18 08:30 Dose: 40 mg Vancomycin HCl 1,250 mg/ (Sodium Chloride) 250 mls @ 125 mls/hr IVPB Q12H [facility]; Protocol Last Admin: 08/16/18 15:32 Dose: 125 mls/hr Ibuprofen (Motrin Tab) 600 mg PO Q6 PRN PRN Reason: Fever >100.4 F Last Admin: 08/12/18 23:50 Dose: 600 mg Ibuprofen (Motrin Tab) 600 mg PO Q6 PRN PRN Reason: Pain, Mild (1-3) Ketorolac Tromethamine (Toradol) 30 mg IVP Q6 PRN PRN Reason: Pain, moderate (4-7) - Labs Labs: 08/16/18 05:30 08/16/18 05:30 Attending/Attestation - Attestation I have personally seen and examined this patient.: Yes I have fully participated in the care of the patient.: Yes I have reviewed all pertinent clinical information, including history, physical exam and plan: Yes Notes (Text): 08/16/18 16:24 agree with findings and plan as above. per ID 7 more days of vanco. awaiting travel insurance verification for outpt IV RX options
[2018-08-17 06:22] LABS: HEMOGLOBIN 9.7 g/dL (12.0-18.0); MEAN CELL VOLUME 95.3 fl (80.0-94.0); MEAN CORPUSCULAR HEMOGLOBIN 32.3 pg (27.0-31.0); MEAN CORPUSCULAR HGB CONC 33.9 g/dL (33.0-37.0); RBC 2.99 Mil/uL (4.40-5.90); RED CELL DISTRIBUTION WIDTH 15.1 % (11.5-14.5); WHITE BLOOD COUNT 10.9 K/uL (4.8-10.8)
[2018-08-17 06:36] LABS: BLOOD UREA NITROGEN 14 mg/dl (9-20); CALCIUM 7.6 mg/dL (8.4-10.2); GFR NON-AFRICAN AMERICAN > 60
[2018-08-17] MEDS: Enoxaparin 40 mg Syringe SC SCH (08:30)
--- NOTE | 2018-08-17 10:18 | CP.PCM.PN ---
Subjective - Date & Time of Evaluation Date of Evaluation: 08/17/18 Time of Evaluation: 09:59 - Subjective Subjective: 72 y/o male patient seen and evaluated at bedside for Left lower extremity swelling and erythema. Patient afebrile for > 48 hours. Patient states that he continues to have oozing serous liquid but significantly less compare to prior days. Patient denies any any overnight fever, chills, CP, SOB, N/V/D, Leg pain or calf tenderness. Patient denies any overnight acute events. 72 yo male patient w/ no significant PMH admitted with LLE cellulitis. Patient improving on redosed vancomycin. LLE cellulitis - Acute. Improving - Afebrile for 72 hours - WBC trending down 10.9 today - LE doppler and CT angio with run off both negative for DVTs and soft tissue collections - Edema markedly improved. Still oozing but less than previous days. Dressing removed at bedside. Changed by the nurse after the patient showers. 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 Continue at 1200 ml/day - Stable - Monitor BMP Anemia - Acute, mild, macrocitic - Vit B12 high. Folate pending TSH elevation -Mild -Poss due to acute inflammation -F/U as outpatient DVT prophylaxis: - lovenox SC daily Objective - Vital Signs/Intake and Output Vital Signs (last 24 hours): Temp Pulse Resp BP Pulse Ox 98.8 F 76 20 137/75 96 08/17/18 08:05 08/17/18 08:05 08/17/18 08:05 08/17/18 08:05 08/17/18 08:05 Intake and Output: 08/17/18 08/17/18 06:59 18:59 Intake Total 400 Balance 400 - Medications Medications: Current Medications Enoxaparin Sodium (Lovenox) 40 mg SC DAILY [facility]; Protocol Last Admin: 08/17/18 08:30 Dose: 40 mg Vancomycin HCl 1,250 mg/ (Sodium Chloride) 250 mls @ 125 mls/hr IVPB Q12H [facility]; Protocol Last Admin: 08/17/18 04:35 Dose: 125 mls/hr Ibuprofen (Motrin Tab) 600 mg PO Q6 PRN PRN Reason: Fever >100.4 F Last Admin: 08/12/18 23:50 Dose: 600 mg Ibuprofen (Motrin Tab) 600 mg PO Q6 PRN PRN Reason: Pain, Mild (1-3) Ketorolac Tromethamine (Toradol) 30 mg IVP Q6 PRN PRN Reason: Pain, moderate (4-7) - Labs Labs: 08/17/18 05:35 08/17/18 05:35 - Constitutional Appears: Well, Non-toxic, No Acute Distress - Head Exam Head Exam: ATRAUMATIC, NORMOCEPHALIC - Eye Exam Eye Exam: EOMI, Normal appearance, PERRL Pupil Exam: NORMAL ACCOMODATION, PERRL - ENT Exam ENT Exam: Mucous Membranes Moist, Normal Exam - Neck Exam Neck Exam: Full ROM, Normal Inspection - Respiratory Exam Respiratory Exam: Clear to Ausculation Bilateral - Cardiovascular Exam Cardiovascular Exam: REGULAR RHYTHM, RRR - GI/Abdominal Exam GI & Abdominal Exam: Soft, Normal Bowel Sounds - Extremities Exam Extremities Exam: Normal Capillary Refill Additional comments: L leg skin is desquamated leaving circumferential ulcer includes most of the left leg with base granular:necrotic 80:20%. Erythema in the thigh is improving. - Back Exam Back Exam: NORMAL INSPECTION - Neurological Exam Neurological Exam: Alert, Awake, Oriented x3 Neuro motor strength exam: Left Upper Extremity: 5, Right Upper Extremity: 5, Left Lower Extremity: 5, Right Lower Extremity: 5 - Psychiatric Exam Psychiatric exam: Normal Affect, Normal Mood - Skin Skin Exam: Dry, Warm Assessment and Plan - Assessment and Plan (Free Text) Assessment: 72 yo male patient w/ no significant PMH admitted with LLE cellulitis. Patient improving on redosed vancomycin. Plan: LLE cellulitis - Acute. Improving - Afebrile for 72 hours - WBC trending down 10.9 today - LE doppler and CT angio with run off both negative for DVTs and soft tissue collections - Edema markedly improved. Still oozing but less than previous days. Dressing removed at bedside. Changed by the nurse after the patient showers. 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 Continue at 1200 ml/day - Stable - Monitor BMP Anemia - Acute, mild, macrocitic - Vit B12 high. Folate pending TSH elevation -Mild -Poss due to acute inflammation -F/U as outpatient DVT prophylaxis: - lovenox SC daily
[2018-08-18 06:27] LABS: HEMOGLOBIN 9.5 g/dL (12.0-18.0); MEAN CORPUSCULAR HEMOGLOBIN 32.5 pg (27.0-31.0); MEAN CORPUSCULAR HGB CONC 34.3 g/dL (33.0-37.0); RBC 2.93 Mil/uL (4.40-5.90); WHITE BLOOD COUNT 10.4 K/uL (4.8-10.8)
[2018-08-18 06:38] LABS: BLOOD UREA NITROGEN 14 mg/dl (9-20); CALCIUM 7.4 mg/dL (8.4-10.2); GFR NON-AFRICAN AMERICAN > 60
[2018-08-18 08:29] VITALS: RESP 18
[2018-08-18] MEDS: Enoxaparin 40 mg Syringe SC SCH (08:40)
--- NOTE | 2018-08-18 09:52 | CP.PCM.PN ---
Subjective - Date & Time of Evaluation Date of Evaluation: 08/18/18 Time of Evaluation: 09:52 - Subjective Subjective: ID Note- Patient seen and examined today. Patient improving. denies any fever or chills. denies any diarrhea. LLE swelling and erythema improving. Objective - Vital Signs/Intake and Output Vital Signs (last 24 hours): Temp Pulse Resp BP Pulse Ox 97.6 F 68 18 128/71 96 08/18/18 08:27 08/18/18 08:27 08/18/18 08:27 08/18/18 08:27 08/18/18 08:27 - Medications Medications: Current Medications Enoxaparin Sodium (Lovenox) 40 mg SC DAILY YUMIKO; Protocol Last Admin: 08/18/18 08:40 Dose: 40 mg Vancomycin HCl 1,250 mg/ (Sodium Chloride) 250 mls @ 125 mls/hr IVPB Q12H YUMIKO; Protocol Last Admin: 08/18/18 04:13 Dose: 125 mls/hr Ibuprofen (Motrin Tab) 600 mg PO Q6 PRN PRN Reason: Fever >100.4 F Last Admin: 08/12/18 23:50 Dose: 600 mg Ibuprofen (Motrin Tab) 600 mg PO Q6 PRN PRN Reason: Pain, Mild (1-3) Last Admin: 08/17/18 23:22 Dose: 600 mg Ketorolac Tromethamine (Toradol) 30 mg IVP Q6 PRN PRN Reason: Pain, moderate (4-7) - Labs Labs: - Additional Findings Additional findings: - Constitutional Appears: No Acute Distress - Head Exam Head Exam: ATRAUMATIC - Eye Exam Eye Exam: EOMI, PERRL - ENT Exam ENT Exam: Normal Oropharynx - Neck Exam Neck exam: Positive for: Full Rom - Respiratory Exam Respiratory Exam: Clear to Auscultation Bilateral, NORMAL BREATHING PATTERN - Cardiovascular Exam Cardiovascular Exam: RRR, +S1, +S2 - GI/Abdominal Exam GI & Abdominal Exam: Normal Bowel Sounds, Soft Additional comments: NT, ND - Extremities Exam Additional comments: left leg from below knee all the way to foot with erythema still but less than before and much less edema thigh region and groin region erythema much less and almost resolved. weeping edema of the LLE from knee down with escoriated skin is also decreased no malodor no ulcers - Neurological Exam Neurological exam: Alert, Oriented x 3 Laboratory Results - last 72 hr 08/14/18 08/16/18 08/16/18 11:03 05:30 05:30 WBC 11.8 H RBC 3.08 L Hgb 9.8 L Hct 29.3 L MCV 95.0 H MCH 31.8 H MCHC 33.4 RDW 14.8 H Plt Count 473 H MPV 7.5 Neut % (Auto) 72.3 Lymph % (Auto) 20.1 [place] % (Auto) 6.5 Eos % (Auto) 0.7 Baso % (Auto) 0.4 Neut # (Auto) 8.5 H Lymph # (Auto) 2.4 [place] # (Auto) 0.8 Eos # (Auto) 0.1 Baso # (Auto) 0.0 Sodium 135 Potassium 3.8 Chloride 103 Carbon Dioxide 26 Anion Gap 10 BUN 13 Creatinine 0.9 Est GFR ( Amer) > 60 Est GFR (Non-Af Amer) > 60 Random Glucose 112 H Calcium 7.7 L Folate 7.9 Vancomycin Trough 08/17/18 08/17/18 08/17/18 05:35 05:35 05:35 WBC 10.9 H RBC 2.99 L Hgb 9.7 L Hct 28.5 L MCV 95.3 H MCH 32.3 H MCHC 33.9 RDW 15.1 H Plt Count 500 H MPV Neut % (Auto) Lymph % (Auto) [place] % (Auto) Eos % (Auto) Baso % (Auto) Neut # (Auto) Lymph # (Auto) [place] # (Auto) Eos # (Auto) Baso # (Auto) Sodium 133 Potassium 3.7 Chloride 103 Carbon Dioxide 25 Anion Gap 9 L BUN 14 Creatinine 0.9 Est GFR ( Amer) > 60 Est GFR (Non-Af Amer) > 60 Random Glucose 107 Calcium 7.6 L Folate Vancomycin Trough 14.6 H 08/18/18 08/18/18 06:19 06:19 WBC 10.4 RBC 2.93 L Hgb 9.5 L Hct 27.8 L MCV 95.0 H MCH 32.5 H MCHC 34.3 RDW 15.0 H Plt Count 514 H MPV Neut % (Auto) Lymph % (Auto) [place] % (Auto) Eos % (Auto) Baso % (Auto) Neut # (Auto) Lymph # (Auto) [place] # (Auto) Eos # (Auto) Baso # (Auto) Sodium 133 Potassium 3.7 Chloride 102 Carbon Dioxide 24 Anion Gap 11 BUN 14 Creatinine 0.9 Est GFR ( Amer) > 60 Est GFR (Non-Af Amer) > 60 Random Glucose 108 Calcium 7.4 L Folate Vancomycin Trough Microbiology 08/13/18 02:24 Blood-Venous Blood Culture - Final NO GROWTH AFTER 5 DAYS 08/13/18 02:24 Blood-Venous Gram Stain - Final TEST NOT PERFORMED 08/11/18 16:54 Blood Blood Culture - Final NO GROWTH AFTER 5 DAYS 08/11/18 16:54 Blood Gram Stain - Final TEST NOT PERFORMED 08/11/18 16:44 Blood Blood Culture - Final NO GROWTH AFTER 5 DAYS 08/11/18 16:44 Blood Gram Stain - Final TEST NOT PERFORMED 08/09/18 21:00 Blood-Venous Blood Culture - Final NO GROWTH AFTER 5 DAYS 08/09/18 21:00 Blood-Venous Gram Stain - Final TEST NOT PERFORMED 08/09/18 20:03 Blood-Venous Blood Culture - Final NO GROWTH AFTER 5 DAYS 08/09/18 20:03 Blood-Venous Gram Stain - Final TEST NOT PERFORMED 08/11/18 10:12 Skin - Cellulitis Gram Stain - Final 08/11/18 10:12 Skin - Cellulitis Wound Culture - Final No growth. Assessment and Plan (1) Cellulitis Status: Acute (2) Sepsis Status: Acute - Assessment and Plan (Free Text) Assessment: A/P- 72 year old male admitted with extensive left leg cellulitis and edema. clinically improving afebrile past 48 hours leukocytosis has resolved today. US of LLE - negative for DVT as per report. blood cx- neg x 4 skin cx- prelim -neg ESR- very high plan- continue with weight based dose vancomycin. today is day #8 of vanco. keep trough between 10-15. completed 4 days of IV ceftriaxone. advise to keep leg elevated while in bed to help reduce inflammation and edema. apply warm compresses to the thigh and the leg region every 8 hours as well. advise based on severity of his cellulitis advise at least another 5 days of IV abx.( vancomycin). after that pt. should be on oral antibiotics ( either bactrim DS BID or doxycyline 100 mg BID for another 10 days as outpatient). all above d/w patient at length and he verbalizes full understanding of all above and agrees with above plan of care. All above also d/w . I will be away from [facility] until Aug 26, will be covering me in my absence in case there are any questions.
--- NOTE | 2018-08-18 10:14 | CP.PCM.PN ---
Subjective - Date & Time of Evaluation Date of Evaluation: 08/18/18 Time of Evaluation: 10:10 - Subjective Subjective: 72 y/o male patient seen and evaluated at bedside for Left lower extremity swelling and erythema. Patient afebrile for > 48 hours. Patient states that he continues to have oozing serous fluid but significantly less compared to prior days. Patient denies any any overnight fever, chills, CP, SOB, N/V/D, Leg pain or calf tenderness. Patient denies any overnight acute events. Objective - Vital Signs/Intake and Output Vital Signs (last 24 hours): Temp Pulse Resp BP Pulse Ox 97.6 F 68 18 128/71 96 08/18/18 08:27 08/18/18 08:27 08/18/18 08:27 08/18/18 08:27 08/18/18 08:27 - Medications Medications: Current Medications Enoxaparin Sodium (Lovenox) 40 mg SC DAILY YUMIKO; Protocol Last Admin: 08/18/18 08:40 Dose: 40 mg Vancomycin HCl 1,250 mg/ (Sodium Chloride) 250 mls @ 125 mls/hr IVPB Q12H YUMIKO; Protocol Last Admin: 08/18/18 04:13 Dose: 125 mls/hr Ibuprofen (Motrin Tab) 600 mg PO Q6 PRN PRN Reason: Fever >100.4 F Last Admin: 08/12/18 23:50 Dose: 600 mg Ibuprofen (Motrin Tab) 600 mg PO Q6 PRN PRN Reason: Pain, Mild (1-3) Last Admin: 08/17/18 23:22 Dose: 600 mg Ketorolac Tromethamine (Toradol) 30 mg IVP Q6 PRN PRN Reason: Pain, moderate (4-7) - Labs Labs: 08/18/18 06:19 08/18/18 06:19 - Constitutional Appears: Well, Non-toxic, No Acute Distress - Head Exam Head Exam: ATRAUMATIC, NORMOCEPHALIC - Eye Exam Eye Exam: EOMI, Normal appearance, PERRL Pupil Exam: NORMAL ACCOMODATION, PERRL - ENT Exam ENT Exam: Mucous Membranes Moist, Normal Exam - Neck Exam Neck Exam: Full ROM, Normal Inspection - Respiratory Exam Respiratory Exam: Clear to Ausculation Bilateral, NORMAL BREATHING PATTERN - Cardiovascular Exam Cardiovascular Exam: REGULAR RHYTHM - GI/Abdominal Exam GI & Abdominal Exam: Soft, Normal Bowel Sounds - Extremities Exam Extremities Exam: Normal Capillary Refill Additional comments: L leg skin is desquamated leaving circumferential ulcer includes most of the left leg with base granular 100%. Erythema in the thigh is improving. - Back Exam Back Exam: NORMAL INSPECTION - Neurological Exam Neurological Exam: Alert, Awake, Oriented x3 Neuro motor strength exam: Left Upper Extremity: 5, Right Upper Extremity: 5, Left Lower Extremity: 5, Right Lower Extremity: 5 - Psychiatric Exam Psychiatric exam: Normal Affect, Normal Mood - Skin Skin Exam: Dry, Warm Assessment and Plan - Assessment and Plan (Free Text) Assessment: 72 yo male patient w/ no significant PMH admitted with LLE cellulitis. Patient improving on redosed vancomycin. Plan: LLE cellulitis - Acute. Improving - Afebrile for 96 hours - WBC trending down 10.4 today - LE doppler and CT angio with run off both negative for DVTs and soft tissue collections - Edema markedly improved. Still oozing but less than previous days. Dressing removed at bedside. Changed by the nurse after the patient showers. - Continue Vancomycin 1.25g q12h (Day 8) - Vancomycin Trough is 14.6 (08/17/2018) - DC Ceftriaxone 2gm daily as per ID recs - Continue with leg elevation - NO IV fluids due to suspected SIADH - All Blood Cx and Wound Cx no growth - Patient improving on redosed Vancomycin. - ID recommends 4-5 more days of IV Vancomycin followed by 10 more days of PO abx - Patient planned to travel to tomorrow early afternoon with a nurse provided by his insurance. Patient will travel with DVT prophylaxis in. Spoke with his medical team that will escort him to the plane and then to the hospital in , also spoke with his family about the plan of travel and treatment. Plan is cleared and all of them. Everybody expressed verbal understanding and agreed about the plan. 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 Continue at 1200 ml/day - Stable - Monitor BMP Anemia - Acute, mild, macrocitic - Vit B12 high. Folate pending TSH elevation -Mild -Poss due to acute inflammation -F/U as outpatient DVT prophylaxis: - lovenox SC daily
[2018-08-19] MEDS: Enoxaparin 40 mg Syringe SC SCH (08:58)
--- NOTE | 2018-08-19 11:24 | CP.PCM.DIS ---
Provider - Provider Date of Admission: 08/11/18 13:46 Attending physician: Bonnie Hernandez DO Consults: 08/11/18 09:32 Infectious Disease Consult Routine Comment: Consulting Provider: Chetna Camejo Consulting Physician: Chetna Camejo Reason for Consult: LLE Cellulitis, Possible lymphangitis 08/16/18 09:05 Wound Care [Nursing Referral for Wound Care] Routine Comment: Physician Instructions: Reason For Exam: left lower leg Time Spent in preparation of Discharge (in minutes): 30 Hospital Course - Lab Results Lab Results: Micro Results 08/13/18 02:24 Blood-Venous Blood Culture - Final NO GROWTH AFTER 5 DAYS 08/13/18 02:24 Blood-Venous Gram Stain - Final TEST NOT PERFORMED 08/11/18 16:54 Blood Blood Culture - Final NO GROWTH AFTER 5 DAYS 08/11/18 16:54 Blood Gram Stain - Final TEST NOT PERFORMED 08/11/18 16:44 Blood Blood Culture - Final NO GROWTH AFTER 5 DAYS 08/11/18 16:44 Blood Gram Stain - Final TEST NOT PERFORMED 08/09/18 21:00 Blood-Venous Blood Culture - Final NO GROWTH AFTER 5 DAYS 08/09/18 21:00 Blood-Venous Gram Stain - Final TEST NOT PERFORMED 08/09/18 20:03 Blood-Venous Blood Culture - Final NO GROWTH AFTER 5 DAYS 08/09/18 20:03 Blood-Venous Gram Stain - Final TEST NOT PERFORMED 08/11/18 10:12 Skin - Cellulitis Gram Stain - Final 08/11/18 10:12 Skin - Cellulitis Wound Culture - Final No growth. Most Recent Lab Values WBC 10.4 K/uL (4.8-10.8) 08/18/18 06:19 RBC 2.93 Mil/uL (4.40-5.90) L 08/18/18 06:19 Hgb 9.5 g/dL (12.0-18.0) L 08/18/18 06:19 Hct 27.8 % (35.0-51.0) L 08/18/18 06:19 MCV 95.0 fl (80.0-94.0) H 08/18/18 06:19 MCH 32.5 pg (27.0-31.0) H 08/18/18 06:19 MCHC 34.3 g/dL (33.0-37.0) 08/18/18 06:19 RDW 15.0 % (11.5-14.5) H 08/18/18 06:19 Plt Count 514 K/uL (130-400) H 08/18/18 06:19 MPV 7.5 fl (7.2-11.7) 08/16/18 05:30 Neut % (Auto) 72.3 % (50.0-75.0) 08/16/18 05:30 Lymph % (Auto) 20.1 % (20.0-40.0) 08/16/18 05:30 [place] % (Auto) 6.5 % (0.0-10.0) 08/16/18 05:30 Eos % (Auto) 0.7 % (0.0-4.0) 08/16/18 05:30 Baso % (Auto) 0.4 % (0.0-2.0) 08/16/18 05:30 Neut # (Auto) 8.5 K/uL (1.8-7.0) H 08/16/18 05:30 Lymph # (Auto) 2.4 K/uL (1.0-4.3) 08/16/18 05:30 [place] # (Auto) 0.8 K/uL (0.0-0.8) 08/16/18 05:30 Eos # (Auto) 0.1 K/uL (0.0-0.7) 08/16/18 05:30 Baso # (Auto) 0.0 K/uL (0.0-0.2) 08/16/18 05:30 Neutrophils % (Manual) 88 % (42-75) H 08/10/18 04:30 Band Neutrophils % 6 % (0-2) H 08/10/18 04:30 Lymphocytes % (Manual) 5 % (20-50) L 08/10/18 04:30 Monocytes % (Manual) 1 % (0-10) 08/10/18 04:30 Toxic Granulation Present 08/10/18 04:30 Platelet Estimate Normal (NORMAL) 08/10/18 04:30 Poikilocytosis (manual Slight 08/10/18 04:30 Anisocytosis (manual) Slight 08/10/18 04:30 Spherocytes Slight 08/09/18 20:26 Ovalocytes Slight 08/09/18 20:26 ESR 98 mm/hr (0-20) H 08/11/18 12:18 pO2 23 mm/Hg (30-55) L 08/09/18 22:18 VBG pH 7.49 (7.32-7.43) H 08/09/18 22:18 VBG pCO2 31 mmHg (40-60) L 08/09/18 22:18 VBG HCO3 24.3 mmol/L 08/09/18 22:18 VBG Total CO2 24.6 mmol/L (22-28) 08/09/18 22:18 VBG O2 Sat (Calc) 49.5 % (40-65) 08/09/18 22:18 VBG Base Excess 1.0 mmol/L (0.0-2.0) 08/09/18 22:18 VBG Potassium 3.1 mmol/L (3.6-5.2) L 08/09/18 22:18 Sodium 127.0 mmol/L (132-148) L 08/09/18 22:18 Chloride 96.0 mmol/L (98-107) L 08/09/18 22:18 Glucose 106 mg/dL (75-110) 08/09/18 22:18 Lactate 1.2 mmol/L (0.7-2.1) 08/09/18 22:18 FiO2 21.0 % 08/09/18 22:18 Sodium 133 mmol/l (132-148) 08/18/18 06:19 Potassium 3.7 MMOL/L (3.6-5.0) 08/18/18 06:19 Chloride 102 mmol/L (98-107) 08/18/18 06:19 Carbon Dioxide 24 mmol/L (22-30) 08/18/18 06:19 Anion Gap 11 (10-20) 08/18/18 06:19 BUN 14 mg/dl (9-20) 08/18/18 06:19 Creatinine 0.9 mg/dl (0.8-1.5) 08/18/18 06:19 Est GFR ( Amer) > 60 08/18/18 06:19 Est GFR (Non-Af Amer) > 60 08/18/18 06:19 Random Glucose 108 mg/dL (75-110) 08/18/18 06:19 Serum Osmolality 272 mosm/kg (272-300) 08/12/18 08:06 Calcium 7.4 mg/dL (8.4-10.2) L 08/18/18 06:19 Phosphorus 2.9 mg/dl (2.5-4.5) 08/11/18 08:54 Magnesium 2.1 MG/DL (1.6-2.3) 08/11/18 08:54 Total Bilirubin 0.8 mg/dl (0.2-1.3) 08/14/18 06:30 AST 53 U/L (17-59) 08/14/18 06:30 ALT 39 U/L (21-72) 08/14/18 06:30 Alkaline Phosphatase 209 U/L (38-126) H D 08/14/18 06:30 Total Protein 5.9 G/DL (6.3-8.2) L 08/14/18 06:30 Albumin 2.6 g/dL (3.5-5.0) L 08/14/18 06:30 Globulin 3.3 gm/dL (2.2-3.9) 08/14/18 06:30 Albumin/Globulin Ratio 0.8 (1.0-2.1) L 08/14/18 06:30 Vitamin B12 > 1000 pg/mL (239-931) H 08/14/18 11:03 Folate 7.9 ng/mL 08/14/18 11:03 Procalcitonin 3.06 NG/ML (0.19-0.49) H 08/13/18 09:24 TSH 3rd Generation 5.86 mIU/ML (0.46-4.68) H 08/14/18 11:03 Venous Blood Potassium 3.1 mmol/L (3.6-5.2) L 08/09/18 22:18 Urine Color [place]ayla (YELLOW) 08/13/18 13:23 Urine Clarity Turbid (Clear) 08/13/18 13:23 Urine pH 6.0 (5.0-8.0) 08/13/18 13:23 Ur Specific [place] 1.025 (1.003-1.030) 08/13/18 13:23 Urine Protein 100 mg/dL (NEGATIVE) 08/13/18 13:23 Urine Glucose (UA) Neg mg/dL (NEGATIVE) 08/13/18 13:23 Urine Ketones Negative mg/dL (NEGATIVE) 08/13/18 13:23 Urine Blood Small (NEGATIVE) 08/13/18 13:23 Urine Nitrate Negative (NEGATIVE) 08/13/18 13:23 Urine Bilirubin Negative (NEGATIVE) 08/13/18 13:23 Urine Urobilinogen 2.0 mg/dL (0.2-1.0) 08/13/18 13:23 Ur Leukocyte Esterase Neg [place]/uL (Negative) 08/13/18 13:23 Urine RBC (Auto) 3 /hpf (0-3) 08/13/18 13:23 Urine Microscopic WBC 2 /hpf (0-5) 08/13/18 13:23 Ur Squamous Epith Cells < 1 /hpf (0-5) 08/13/18 13:23 Amorphous Sediment Rare /ul (<OCC) H 08/13/18 13:23 Urine Bacteria Rare (<OCC) 08/13/18 13:23 Hyaline Casts 0-2 /hpf (0-2) 08/13/18 13:23 Urine Osmolality 657 mosm/kg (300-1000) 08/12/18 16:40 Ur Random Sodium 18 meq/L 08/12/18 16:40 Ur Random Potassium 58.9 mmol/L 08/12/18 16:40 Vancomycin Trough 14.6 ug/mL (5.0-10.0) H 08/17/18 05:35 HIV-1 Ab Rapid Screen Non reactive (NON REAC) 08/11/18 13:45 - Hospital Course Hospital Course: 72 y/o M with No relevant PMHx admitted for left lower extremity cellulitis . Daily dressing of the left leg using adaptic and DSD was done. Patient received a course of abx: IV Vanc 1 gm QD and Zosyn 3.375 gm Q6 x 3 days then Vancomycin 1gm IV QD and ceftriaxone 2gms IV QD for another day then continued on IV Vancomycin adjusted dose for another 7 days targeting vanc trough to be 10-15. Patient was also on lovenox 40 mg sc QD for DVT prophylaxis. Toradol 30 mg IV Q6 PRN and Ibuprofen 600 mg PO Q6 PRN for pain. Blood and wound cultures were negative. Patient left lower extremity improved. During his hospital course; Patient didn't have any acute events or distress. Patient discharged home on 4 more days of IV vancomycin 1gm QD (adjust it according to the trough level) and then 10 more days of Doxycycline 100 mg PO QD or Bactrim DS 2 tablets Q12 PO. Patient to travel back to with a nurse. Patient today's dose of IV vancomycin was held due to high trough leve. Patient received today's SC Lovenox. before heading to the airport. Assessment: 72 yo male patient admitted with LLE cellulitis/sepsis. Plan: LLE cellulitis: - Acute. Improving - Afebrile for 5 days - WBC trending down 10.4 (08/18/2018) - LE doppler and CT angio with run off both negative for DVTs and soft tissue collections - Edema markedly improved. Still oozing but less than previous days. - Dressing to the left leg changed today using Adaptic and dry sterile dressing. - Hold Vancomycin for today due to high trough. - Vancomycin Trough is 22.3 (08/19/2018) - Continue with leg elevation - NO IV fluids due to suspected SIADH - All Blood Cx and Wound Cx no growth - Patient improving on redosed Vancomycin. - ID recommends 4more days of IV Vancomycin 1gm QD (adjust it according to the trough level) followed by 10 more days of Doxycycline 100 mg PO QD or Bactrim DS 2 tablets Q12 PO. - Patient planned to travel to today early afternoon with a nurse provided by his insurance. Patient will travel with DVT prophylaxis in. Spoke with his medical team that will escort him to the plane and then to the hospital in , also spoke with his family about the plan of travel and treatment. Plan is alvarado ared and all of them. Everybody expressed verbal understanding and agreed about the plan. Discharge Exam - Head Exam Head Exam: ATRAUMATIC, NORMOCEPHALIC - Eye Exam Eye Exam: EOMI, Normal appearance, PERRL Pupil Exam: NORMAL ACCOMODATION, PERRL - ENT Exam ENT Exam: Mucous Membranes Moist - Neck Exam Neck exam: Full Rom, Normal Inspection - Respiratory Exam Respiratory Exam: Clear to PA & Lateral, NORMAL BREATHING PATTERN, UNREMARKABLE - Cardiovascular Exam Cardiovascular Exam: REGULAR RHYTHM, RRR - GI/Abdominal Exam GI & Abdominal Exam: Normal Bowel Sounds, Unremarkable - Extremities Exam Extremities exam: normal capillary refill Additional comments: LLE erythema, swelling, warmth, and tenderness from ankle extending to knee with medial aspect of left thigh also erythematous, DP/PT 2+ b/l - Back Exam Back exam: NORMAL INSPECTION - Neurological Exam Neurological exam: Alert, Oriented x3 - Psychiatric Exam Psychiatric exam: Normal Affect, Normal Mood - Skin Skin Exam: Warm Discharge Plan - Follow Up Plan Condition: FAIR Disposition: HOME/ ROUTINE Instructions: Sepsis, Adult (DC), Cellulitis (DC), Cellulitis (GEN), Sepsis (DC), Sepsis (GEN) Additional Instructions: follow up with primary MD 1 week Referrals: Chetna Camejo MD [Staff Provider] -
[2018-08-19 12:48] VITALS: BP 132/75; PULSE 73; TEMP 98.4; O2SAT 96
== END 2018-08-19 13:20 | disposition home or self-care (01) | DRG 872 ==
LOC: H.ER 18:26 → H.ERHOLD 20:53 → INTOOBSV 20:53 → H.TEL 08-10 00:56 → H.MEDSURG1 08-10 18:37 → OBSVTOIN 08-11 13:46
PROVIDERS: ADMIT Student in an Organized Health Care Education/Training Program; ATTEND Student in an Organized Health Care Education/Training Program
DX: A41.9 Sepsis, unspecified organism (principal); L03.116 Cellulitis of left lower limb; E22.2 Syndrome of inappropriate secretion of antidiuretic hormone; Z90.49 Acquired absence of other specified parts of digestive tract; D64.9 Anemia, unspecified; Z87.891 Personal history of nicotine dependence